=== PATIENT | male | born 1945 | race Caucasian/White ===

== ENCOUNTER 2021-03-22 08:23 | Inpatient (IN) | payer OTHER ==
[2021-03-22 10:41] LABS: BASO % 0.7 % (0-2.0); EOS % 2.9 % (0-4.5); HEMATOCRIT 42.7 % (35.4-49); HEMOGLOBIN 14.3 GM/dL (11.7-16.9); LYMPH % 20.6 % (8-40); MCH 29.3 pg (25.7-33.7); MCHC 33.6 g/dl (32.0-35.9); MEAN CELL VOLUME 87.2 fl (80-96); MEAN PLT VOLUME 8.4 fl (7.5-11.1); MONO % 8.2 % (3.8-10.2); NEUT % 67.6 % (42.8-82.8); PLATELET COUNT 200 10^3/uL (134-434); RDW 12.8 % (11.9-15.9); WHITE BLOOD COUNT 4.9 K/mm3 (4.0-10.0)
[2021-03-22 10:49] LABS: INR 1.1 (0.83-1.09); PROTHROMBIN TIME (PATIENT) 12.7 SEC (9.7-13.0)
[2021-03-22 10:51] LABS: ACTIVATED PTT 31.7 SECONDS (25.2-36.5)
[2021-03-22 10:59] LABS: CHLORIDE 107 mmol/L (98-107); SODIUM 140 mmol/L (136-145)
[2021-03-22 11:01] LABS: ALBUMIN 3.9 g/dl (3.4-5.0); ANION GAP 3 MMOL/L (8-16); CALCIUM 8.7 mg/dL (8.5-10.1); CO2 29 mmol/L (21-32); GLUCOSE,RANDOM 88 mg/dL (74-106); MAGNESIUM 2.5 mg/dL (1.8-2.4)
[2021-03-22 11:02] LABS: BLOOD UREA NITROGEN 16.8 mg/dL (7-18)
[2021-03-22 11:04] LABS: CREATININE 0.9 mg/dL (0.55-1.3); SGOT/AST 29 U/L (15-37)
[2021-03-22 11:05] LABS: SGPT/ALT 11 U/L (13-61)
[2021-03-22 11:06] LABS: BILIRUBIN,TOTAL 0.6 mg/dL (0.2-1); TOT PROT 7.3 g/dl (6.4-8.2)
[2021-03-22 11:07] LABS: ALK PHOS 72 U/L (45-117)
[2021-03-22] MEDS ORDERED: ACETAMINOPHEN 325 MG TABLET (FP) PO PRN (12:27)
[2021-03-22 12:34] LABS: EPI CELLS 0 /uL (0-25.1); HYALINE CASTS 1 /uL (0-3.1); URINE APPEARANCE CLEAR; URINE BACTERIA >9,000 /uL (0-1359); URINE BILIRUBIN NEGATIVE (NEGATIVE); URINE COLOR YELLOW; URINE GLUCOSE (UA) NEGATIVE (NEGATIVE); URINE KETONE NEGATIVE (NEGATIVE); URINE LEUK ESTERASE 1+ (NEGATIVE); URINE NITRITE POSITIVE (NEGATIVE); URINE PROTEIN NEGATIVE (NEGATIVE); URINE RBC 6 /uL (0-23.9); URINE WBC 135 /uL (0-25.8)
[2021-03-22] MEDS ORDERED: CEFTRIAXONE 1 GM/50 ML BAG ONE (14:01)
[2021-03-22] MEDS: CEFTRIAXONE 1 GM in DEXTROSE 5%-WATER - 50 ML IVPB SCH (14:09)
[2021-03-22] MEDS ORDERED: ATORVASTATIN CA 40 MG TABLET (FP) ONE (22:02)
[2021-03-22] MEDS ORDERED: MIRTAZAPINE 15 MG TABLET (FP) ONE (22:02)
[2021-03-22] MEDS ORDERED: SENNOSIDES 8.6MG TABLET (FP) PO ONE (22:02)
[2021-03-22] MEDS: MIRTAZAPINE 15 MG TABLET (FP) PO SCH (22:08)
[2021-03-22] MEDS: ATORVASTATIN CA 40 MG TABLET (FP) PO SCH (22:08)
[2021-03-22] MEDS: SENNOSIDES 8.6MG TABLET (FP) PO SCH (22:08)
[2021-03-23] MEDS ORDERED: CARBIDOPA/LEVODOPA 25/100 TABLET (FP) ONE (00:15)
[2021-03-23] MEDS ORDERED: HALOPERIDOL LACTATE 5 MG/ML ONE (05:55)
[2021-03-23] MEDS ORDERED: HALOPERIDOL LACTATE 5 MG/ML IM ONE (06:08)
[2021-03-23] MEDS ORDERED: LORazepam 2 MG/ML SDV VIAL IM ONE (06:08)
[2021-03-23 08:18] LABS: BASO % 0.4 % (0-2.0); EOS % 2.2 % (0-4.5); HEMATOCRIT 41.4 % (35.4-49); HEMOGLOBIN 13.9 GM/dL (11.7-16.9); LYMPH % 13.6 % (8-40); MCH 29.2 pg (25.7-33.7); MCHC 33.6 g/dl (32.0-35.9); MEAN CELL VOLUME 87.1 fl (80-96); MEAN PLT VOLUME 8.4 fl (7.5-11.1); MONO % 8.2 % (3.8-10.2); NEUT % 75.6 % (42.8-82.8); PLATELET COUNT 209 10^3/uL (134-434); RBC 4.76 M/mm3 (4.00-5.60); WHITE BLOOD COUNT 5.7 K/mm3 (4.0-10.0)
[2021-03-23 08:43] LABS: CHLORIDE 108 mmol/L (98-107); SODIUM 141 mmol/L (136-145)
[2021-03-23 08:47] LABS: ALBUMIN 3.6 g/dl (3.4-5.0); ANION GAP 6 MMOL/L (8-16); BLOOD UREA NITROGEN 18.6 mg/dL (7-18); CO2 27 mmol/L (21-32); GLUCOSE,RANDOM 102 mg/dL (74-106)
[2021-03-23 08:48] LABS: CALCIUM 9.1 mg/dL (8.5-10.1)
[2021-03-23 08:50] LABS: SGOT/AST 29 U/L (15-37); SGPT/ALT 10 U/L (13-61)
[2021-03-23 08:52] LABS: BILIRUBIN,TOTAL 0.9 mg/dL (0.2-1); TOT PROT 6.8 g/dl (6.4-8.2)
[2021-03-23 08:53] LABS: ALK PHOS 67 U/L (45-117)
[2021-03-23] MEDS: BENZTROPINE MESYLATE 1 MG TABLET PO SCH (10:00)
[2021-03-23] MEDS: POLYETHYLENE GLYCOL (HEALTHYLAX) 3350 17 GM PACKET PO SCH (10:00)
[2021-03-23] MEDS: SOLIFENACIN SUCCINATE 5 MG TAB PO SCH (10:00)
[2021-03-23] MEDS ORDERED: LISINOPRIL 5 MG TABLET PO SCH ×2 (10:00→11:16)
[2021-03-23] MEDS: DOCUSATE SODIUM 100 MG CAPSULE (FP) PO SCH (10:00)
[2021-03-23] MEDS: metoPROLOL SUCCINATE 25 MG TAB.SR.24H (FP) PO SCH (10:00)
[2021-03-23] MEDS ORDERED: LISINOPRIL 5 MG TABLET ONE (10:20)
[2021-03-23] MEDS ORDERED: metoPROLOL SUCCINATE 25 MG TAB.SR.24H (FP) ONE (10:20)
[2021-03-23] MEDS ORDERED: DOCUSATE SODIUM 100 MG CAPSULE (FP) PO ONE (10:20)
[2021-03-23] MEDS ORDERED: POLYETHYLENE GLYCOL (HEALTHYLAX) 3350 17 GM PACKET ONE (10:20)
[2021-03-23] MEDS ORDERED: CEFTRIAXONE 1 GM/50 ML BAG ONE (10:21)
[2021-03-23] MEDS ORDERED: ENOXAPARIN NA (PORCINE) 40 MG/0.4 ML DISP.SYRIN SQ ONE (10:21)
[2021-03-23] MEDS: ENOXAPARIN NA (PORCINE) 40 MG/0.4 ML DISP.SYRIN SQ SCH (10:25)
[2021-03-23] MEDS: CEFTRIAXONE 1 GM in DEXTROSE 5%-WATER - 50 ML IVPB SCH (10:40)
[2021-03-23] MEDS ORDERED: SODIUM CHLORIDE 500 ML IV STA (10:48)
[2021-03-23] MEDS: MIRTAZAPINE 15 MG TABLET (FP) PO SCH (21:10)
[2021-03-23] MEDS: SENNOSIDES 8.6MG TABLET (FP) PO SCH (21:10)
[2021-03-23] MEDS: ATORVASTATIN CA 40 MG TABLET (FP) PO SCH (21:10)
[2021-03-24] MEDS: MELATONIN 5 MG TABLETS PO SCH ×2 (00:44→22:24)
[2021-03-24] MEDS ORDERED: LORazepam 2 MG/ML SDV VIAL IVPUSH ONE ×2 (03:56→05:32)
[2021-03-24] MEDS ORDERED: cefTRIAXone SODIUM 1 GM VIAL ONE (09:22)
[2021-03-24] MEDS ORDERED: DEXTROSE 5%-WATER - 50 ML IVPB ONE (09:23)
[2021-03-24] MEDS: DOCUSATE SODIUM 100 MG CAPSULE (FP) PO SCH (09:39)
[2021-03-24] MEDS: metoPROLOL SUCCINATE 25 MG TAB.SR.24H (FP) PO SCH (09:39)
[2021-03-24] MEDS: ENOXAPARIN NA (PORCINE) 40 MG/0.4 ML DISP.SYRIN SQ SCH (09:39)
[2021-03-24] MEDS: SOLIFENACIN SUCCINATE 5 MG TAB PO SCH (09:39)
[2021-03-24] MEDS: BENZTROPINE MESYLATE 1 MG TABLET PO SCH (09:39)
[2021-03-24] MEDS: POLYETHYLENE GLYCOL (HEALTHYLAX) 3350 17 GM PACKET PO SCH (09:40)
[2021-03-24] MEDS: CEFTRIAXONE 1 GM in DEXTROSE 5%-WATER - 50 ML IVPB SCH (09:41)
[2021-03-24 10:24] LABS: HEMATOCRIT 42.4 % (35.4-49); HEMOGLOBIN 13.7 GM/dL (11.7-16.9); MCH 28.6 pg (25.7-33.7); MCHC 32.2 g/dl (32.0-35.9); MEAN CELL VOLUME 88.6 fl (80-96); MEAN PLT VOLUME 8.7 fl (7.5-11.1); PLATELET COUNT 221 10^3/uL (134-434); RBC 4.78 M/mm3 (4.00-5.60); RDW 13.1 % (11.9-15.9); WHITE BLOOD COUNT 5.1 K/mm3 (4.0-10.0)
[2021-03-24 10:48] LABS: CALCIUM 8.7 mg/dL (8.5-10.1)
[2021-03-24 10:49] LABS: ALBUMIN 3.6 g/dl (3.4-5.0); BLOOD UREA NITROGEN 17.8 mg/dL (7-18); MAGNESIUM 2.4 mg/dL (1.8-2.4)
[2021-03-24 10:52] LABS: PHOSPHOROUS 3.2 mg/dL (2.5-4.9)
[2021-03-24 10:53] LABS: TOT PROT 6.7 g/dl (6.4-8.2)
[2021-03-24] MEDS ORDERED: ACETAMINOPHEN 325 MG TABLET (FP) PO PRN (13:11)
[2021-03-24 14:11] VITALS: BMI 27.7
[2021-03-24 14:51] LABS: METHADONE, UR NEGATIVE (NEGATIVE)
[2021-03-24 14:52] LABS: COCAINE, UR NEGATIVE (NEGATIVE); OPIATES, URI NEGATIVE (NEGATIVE); PHENCYCLIDINE,URINE NEGATIVE (NEGATIVE); URINE AMPHETAMINES NEGATIVE (NEGATIVE); URINE BARBITURATES NEGATIVE (NEGATIVE); URINE BENZODIAZEPINES NEGATIVE (NEGATIVE)
[2021-03-24] MEDS ORDERED: QUEtiapine FUMARATE 25 MG TABLET PO ONE ×2 (16:28→22:00)
[2021-03-24] MEDS ORDERED: MIRTAZAPINE 15 MG TABLET (FP) PO SCH (22:00)
[2021-03-24] MEDS ORDERED: ATORVASTATIN CA 40 MG TABLET (FP) PO SCH (22:00)
[2021-03-24] MEDS ORDERED: SENNOSIDES 8.6MG TABLET (FP) PO SCH (22:00)
[2021-03-24] MEDS ORDERED: QUEtiapine FUMARATE 50 MG TABLET PO SCH (22:00)
[2021-03-25 09:48] LABS: HEMATOCRIT 41.4 % (35.4-49); MCH 29.7 pg (25.7-33.7); MCHC 33.7 g/dl (32.0-35.9); MEAN CELL VOLUME 88.1 fl (80-96); MEAN PLT VOLUME 8.2 fl (7.5-11.1); PLATELET COUNT 198 10^3/uL (134-434); RDW 13.2 % (11.9-15.9); WHITE BLOOD COUNT 5.8 K/mm3 (4.0-10.0)
[2021-03-25] MEDS ORDERED: BENZTROPINE MESYLATE 1 MG TABLET PO SCH (10:00)
[2021-03-25] MEDS ORDERED: POLYETHYLENE GLYCOL (HEALTHYLAX) 3350 17 GM PACKET PO SCH (10:00)
[2021-03-25] MEDS ORDERED: LISINOPRIL 5 MG TABLET PO SCH (10:00)
[2021-03-25] MEDS ORDERED: DOCUSATE SODIUM 100 MG CAPSULE (FP) PO SCH (10:00)
[2021-03-25] MEDS ORDERED: SOLIFENACIN SUCCINATE 5 MG TAB PO SCH (10:00)
[2021-03-25] MEDS ORDERED: CEFTRIAXONE 1 GM in DEXTROSE 5%-WATER - 50 ML IVPB SCH (10:00)
[2021-03-25] MEDS ORDERED: ENOXAPARIN NA (PORCINE) 40 MG/0.4 ML DISP.SYRIN SQ SCH (10:00)
[2021-03-25] MEDS ORDERED: metoPROLOL SUCCINATE 25 MG TAB.SR.24H (FP) PO SCH (10:00)
[2021-03-25 10:50] LABS: CALCIUM 8.7 mg/dL (8.5-10.1)
[2021-03-25 10:51] LABS: ALBUMIN 3.4 g/dl (3.4-5.0); BLOOD UREA NITROGEN 20.4 mg/dL (7-18); MAGNESIUM 2.6 mg/dL (1.8-2.4)
[2021-03-25 10:54] LABS: CREATININE 1.1 mg/dL (0.55-1.3); PHOSPHOROUS 3.3 mg/dL (2.5-4.9)
[2021-03-25 10:56] LABS: TOT PROT 6.7 g/dl (6.4-8.2)
[2021-03-25 16:55] VITALS: BP 116/72; PULSE 66; TEMP 98.7
[2021-03-25] MEDS ORDERED: QUEtiapine FUMARATE 50 MG TABLET PO SCH (22:00)
== END 2021-03-25 16:56 | disposition home or self-care (01) | DRG 689 ==
LOC: JER 08:23 → UNDOADMOB 09:40 → JERBED 09:40 → INTOOBSV 12:29 → OBSVTOIN 12:29 → J5S 03-23 19:14
PROVIDERS: ATTEND Internal Medicine
DX: N39.0 Urinary tract infection, site not specified (principal); G93.41 Metabolic encephalopathy; F02.81 Dementia in other diseases classified elsewhere, unspecified severity, with behavioral disturbance; M62.82 Rhabdomyolysis; I10 Essential (primary) hypertension; G20 Parkinson's disease; Z86.73 Personal history of transient ischemic attack (TIA), and cerebral infarction without residual deficits; K59.00 Constipation, unspecified; E78.5 Hyperlipidemia, unspecified
CPT/HCPCS: 36415; 70450-TC; 71045-TC-FY; 72125-TC; 73030-TC-LT-FY; 73523-TC-FY; 80053; 80307; 81003; 82550; 82553; 82962; 83735; 84100; 84484; 85025; 85027; 85610; 85730; 87086; 93005; 93010; 97116-GP; 97162-GP; 99285-25; C9803; G0378; U0003; U0005

== ENCOUNTER 2021-04-17 08:59 | Inpatient (IN) | payer OTHER ==
[2021-04-17 09:27] VITALS: BMI 25.8
[2021-04-17 10:13] LABS: BASO % 0.5 % (0-2.0); HEMATOCRIT 40.6 % (35.4-49); HEMOGLOBIN 13.9 GM/dL (11.7-16.9); LYMPH % 16.7 % (8-40); MCHC 34.2 g/dl (32.0-35.9); MEAN CELL VOLUME 87.8 fl (80-96); MEAN PLT VOLUME 8.4 fl (7.5-11.1); NEUT % 73.8 % (42.8-82.8); PLATELET COUNT 202 10^3/uL (134-434); RBC 4.62 M/mm3 (4.00-5.60); RDW 13.3 % (11.9-15.9); WHITE BLOOD COUNT 5.9 K/mm3 (4.0-10.0)
[2021-04-17 10:26] LABS: EPI CELLS >36 /uL (0-25.1); HYALINE CASTS 4 /uL (0-3.1); PH,URINE 5.5 (5.0-8.0); URINE APPEARANCE CLEAR; URINE BACTERIA 12 /uL (0-1359); URINE BILIRUBIN NEGATIVE (NEGATIVE); URINE COLOR ORANGE; URINE GLUCOSE (UA) NEGATIVE (NEGATIVE); URINE KETONE NEGATIVE (NEGATIVE); URINE LEUK ESTERASE TRACE (NEGATIVE); URINE NITRITE NEGATIVE (NEGATIVE); URINE PROTEIN TRACE (NEGATIVE); URINE RBC 3985 /uL (0-23.9); URINE WBC 35 /uL (0-25.8)
[2021-04-17 10:38] LABS: ALBUMIN 3.9 g/dl (3.4-5.0); BLOOD UREA NITROGEN 18.7 mg/dL (7-18)
[2021-04-17 10:41] LABS: CREATININE 0.9 mg/dL (0.55-1.3)
[2021-04-17 10:43] LABS: BILIRUBIN,TOTAL 0.8 mg/dL (0.2-1); TOT PROT 6.9 g/dl (6.4-8.2)
[2021-04-17] MEDS ORDERED: SODIUM CHLORIDE 0.9% 500 ML INFUS.BAG IV ONE (11:50)
[2021-04-17] MEDS: HEPARIN NA (PORCINE) 5,000 UNITS/ML 1ML VIAL SQ SCH ×2 (14:41→23:18)
[2021-04-17] MEDS ORDERED: ATORVASTATIN CA 40 MG TABLET (FP) PO SCH (22:00)
[2021-04-17] MEDS: BENZTROPINE MESYLATE 1 MG TABLET PO SCH (23:18)
[2021-04-17] MEDS: MIRTAZAPINE 15 MG TABLET (FP) PO SCH (23:18)
[2021-04-18] MEDS: HEPARIN NA (PORCINE) 5,000 UNITS/ML 1ML VIAL SQ SCH ×3 (06:07→21:22)
[2021-04-18 08:39] LABS: HEMATOCRIT 42.3 % (35.4-49); MCH 29.4 pg (25.7-33.7); MCHC 33.2 g/dl (32.0-35.9); MEAN CELL VOLUME 88.5 fl (80-96); MEAN PLT VOLUME 8.8 fl (7.5-11.1); PLATELET COUNT 193 10^3/uL (134-434); RBC 4.78 M/mm3 (4.00-5.60); RDW 13.1 % (11.9-15.9); WHITE BLOOD COUNT 4.7 K/mm3 (4.0-10.0)
[2021-04-18 08:56] LABS: BLOOD UREA NITROGEN 15.7 mg/dL (7-18); CALCIUM 8.9 mg/dL (8.5-10.1); MAGNESIUM 2.3 mg/dL (1.8-2.4)
[2021-04-18 09:00] LABS: CREATININE 0.9 mg/dL (0.55-1.3); PHOSPHOROUS 2.7 mg/dL (2.5-4.9)
[2021-04-18] MEDS: LISINOPRIL 5 MG TABLET PO SCH (10:04)
[2021-04-18] MEDS: metoPROLOL SUCCINATE 25 MG TAB.SR.24H (FP) PO SCH (10:05)
[2021-04-18] MEDS: OXYBUTYNIN CHLORIDE 5 MG TABLET PO SCH (10:05)
[2021-04-18] MEDS: BENZTROPINE MESYLATE 1 MG TABLET PO SCH ×2 (10:05→21:22)
[2021-04-18 11:35] LABS: EPI CELLS 1 /uL (0-25.1); HYALINE CASTS 38 /uL (0-3.1); PH,URINE 6.5 (5.0-8.0); URINE APPEARANCE CLOUDY; URINE BACTERIA >9,000 /uL (0-1359); URINE BILIRUBIN NEGATIVE (NEGATIVE); URINE COLOR YELLOW; URINE GLUCOSE (UA) NEGATIVE (NEGATIVE); URINE KETONE NEGATIVE (NEGATIVE); URINE LEUK ESTERASE 2+ (NEGATIVE); URINE NITRITE POSITIVE (NEGATIVE); URINE PROTEIN NEGATIVE (NEGATIVE); URINE RBC 221 /uL (0-23.9); URINE UROBILINOGEN 0.2 mg/dL (0.2-1.0); URINE WBC 474 /uL (0-25.8)
[2021-04-18] MEDS: ASPIRIN COATED 81 MG TABLET.EC PO SCH (12:06)
[2021-04-18] MEDS: ACETAMINOPHEN 325 MG TABLET (FP) PO PRN (13:58)
[2021-04-18] MEDS: MIRTAZAPINE 15 MG TABLET (FP) PO SCH (21:21)
[2021-04-19] MEDS: HEPARIN NA (PORCINE) 5,000 UNITS/ML 1ML VIAL SQ SCH ×4 (06:59→21:23)
[2021-04-19 08:07] LABS: BASO % 0.6 % (0-2.0); EOS % 3.7 % (0-4.5); HEMATOCRIT 43.5 % (35.4-49); HEMOGLOBIN 14.5 GM/dL (11.7-16.9); LYMPH % 23.9 % (8-40); MCH 29.3 pg (25.7-33.7); MCHC 33.4 g/dl (32.0-35.9); MEAN CELL VOLUME 87.9 fl (80-96); MEAN PLT VOLUME 8.5 fl (7.5-11.1); MONO % 8.4 % (3.8-10.2); NEUT % 63.4 % (42.8-82.8); PLATELET COUNT 187 10^3/uL (134-434); RBC 4.94 M/mm3 (4.00-5.60); RDW 13.1 % (11.9-15.9); WHITE BLOOD COUNT 4.8 K/mm3 (4.0-10.0)
[2021-04-19 08:16] LABS: CALCIUM 8.8 mg/dL (8.5-10.1)
[2021-04-19 08:17] LABS: BLOOD UREA NITROGEN 16.2 mg/dL (7-18)
[2021-04-19] MEDS ORDERED: INSULIN (NOVOLOG) ASPART 100 UNITS/ML 10ML VIAL ONE (10:39)
[2021-04-19] MEDS: OXYBUTYNIN CHLORIDE 5 MG TABLET PO SCH (10:51)
[2021-04-19] MEDS: LISINOPRIL 5 MG TABLET PO SCH (10:51)
[2021-04-19] MEDS: ASPIRIN COATED 81 MG TABLET.EC PO SCH (10:51)
[2021-04-19] MEDS: BENZTROPINE MESYLATE 1 MG TABLET PO SCH ×2 (10:51→21:23)
[2021-04-19] MEDS: metoPROLOL SUCCINATE 25 MG TAB.SR.24H (FP) PO SCH (10:51)
[2021-04-19] MEDS ORDERED: HALOPERIDOL LACTATE 5 MG/ML IM ONE (14:25)
[2021-04-19] MEDS ORDERED: LORazepam 2 MG/ML SDV VIAL IVPUSH ONE (14:28)
[2021-04-19] MEDS: ACETAMINOPHEN 325 MG TABLET (FP) PO PRN (21:23)
[2021-04-19] MEDS: MIRTAZAPINE 15 MG TABLET (FP) PO SCH (21:23)
[2021-04-20] MEDS: HEPARIN NA (PORCINE) 5,000 UNITS/ML 1ML VIAL SQ SCH ×3 (05:50→22:23)
[2021-04-20 09:21] LABS: BASO % 0.6 % (0-2.0); HEMATOCRIT 42.1 % (35.4-49); HEMOGLOBIN 13.7 GM/dL (11.7-16.9); LYMPH % 22.6 % (8-40); MCH 29.1 pg (25.7-33.7); MCHC 32.6 g/dl (32.0-35.9); MEAN CELL VOLUME 89.2 fl (80-96); MONO % 7.8 % (3.8-10.2); PLATELET COUNT 195 10^3/uL (134-434); RBC 4.72 M/mm3 (4.00-5.60); RDW 13.2 % (11.9-15.9); WHITE BLOOD COUNT 5.5 K/mm3 (4.0-10.0)
[2021-04-20 10:05] LABS: CALCIUM 8.7 mg/dL (8.5-10.1)
[2021-04-20] MEDS: ASPIRIN COATED 81 MG TABLET.EC PO SCH (10:50)
[2021-04-20] MEDS: OXYBUTYNIN CHLORIDE 5 MG TABLET PO SCH (10:50)
[2021-04-20] MEDS: metoPROLOL SUCCINATE 25 MG TAB.SR.24H (FP) PO SCH (10:50)
[2021-04-20] MEDS: LISINOPRIL 5 MG TABLET PO SCH (10:50)
[2021-04-20] MEDS: BENZTROPINE MESYLATE 1 MG TABLET PO SCH ×2 (10:50→22:18)
[2021-04-20] MEDS: POLYETHYLENE GLYCOL (HEALTHYLAX) 3350 17 GM PACKET PO SCH (10:52)
[2021-04-20] MEDS: SENNOSIDES 8.8 MG/5 ML BULK BOTTLE PO SCH (22:19)
[2021-04-20] MEDS: MIRTAZAPINE 15 MG TABLET (FP) PO SCH (22:19)
[2021-04-20] MEDS: ATORVASTATIN CA 40 MG TABLET (FP) PO SCH (22:23)
[2021-04-21] MEDS: HEPARIN NA (PORCINE) 5,000 UNITS/ML 1ML VIAL SQ SCH ×3 (05:40→22:42)
[2021-04-21] MEDS: LISINOPRIL 5 MG TABLET PO SCH (10:00)
[2021-04-21] MEDS: ASPIRIN COATED 81 MG TABLET.EC PO SCH (10:00)
[2021-04-21] MEDS: metoPROLOL SUCCINATE 25 MG TAB.SR.24H (FP) PO SCH (10:00)
[2021-04-21] MEDS: BENZTROPINE MESYLATE 1 MG TABLET PO SCH ×2 (10:00→22:50)
[2021-04-21] MEDS: POLYETHYLENE GLYCOL (HEALTHYLAX) 3350 17 GM PACKET PO SCH (10:00)
[2021-04-21] MEDS: OXYBUTYNIN CHLORIDE 5 MG TABLET PO SCH (10:00)
[2021-04-21] MEDS: MIRTAZAPINE 15 MG TABLET (FP) PO SCH (22:42)
[2021-04-21] MEDS: ATORVASTATIN CA 40 MG TABLET (FP) PO SCH (22:42)
[2021-04-21] MEDS: SENNOSIDES 8.8 MG/5 ML BULK BOTTLE PO SCH (22:50)
[2021-04-22] MEDS: HEPARIN NA (PORCINE) 5,000 UNITS/ML 1ML VIAL SQ SCH ×3 (06:15→21:21)
[2021-04-22] MEDS: ASPIRIN COATED 81 MG TABLET.EC PO SCH (10:24)
[2021-04-22] MEDS: LISINOPRIL 5 MG TABLET PO SCH ×2 (10:25→10:53)
[2021-04-22] MEDS: BENZTROPINE MESYLATE 1 MG TABLET PO SCH ×2 (10:25→22:40)
[2021-04-22] MEDS: metoPROLOL SUCCINATE 25 MG TAB.SR.24H (FP) PO SCH ×2 (10:25→10:53)
[2021-04-22] MEDS: ACETAMINOPHEN 325 MG TABLET (FP) PO PRN (10:25)
[2021-04-22] MEDS: OXYBUTYNIN CHLORIDE 5 MG TABLET PO SCH (10:25)
[2021-04-22] MEDS: POLYETHYLENE GLYCOL (HEALTHYLAX) 3350 17 GM PACKET PO SCH (10:27)
[2021-04-22] MEDS ORDERED: SODIUM CHLORIDE 500 ML IV STA (12:09)
[2021-04-22] MEDS ORDERED: CEFTRIAXONE 1 GM in DEXTROSE 5%-WATER - 50 ML IVPB ONE (15:15)
[2021-04-22] MEDS ORDERED: cefTRIAXone SODIUM 1 GM VIAL ONE (16:08)
[2021-04-22] MEDS ORDERED: DEXTROSE 5%-WATER - 50 ML IVPB ONE (16:08)
[2021-04-22] MEDS: ATORVASTATIN CA 40 MG TABLET (FP) PO SCH (21:21)
[2021-04-22] MEDS: MIRTAZAPINE 15 MG TABLET (FP) PO SCH (21:21)
[2021-04-22] MEDS: SENNOSIDES 8.8 MG/5 ML BULK BOTTLE PO SCH (21:22)
[2021-04-23] MEDS: HEPARIN NA (PORCINE) 5,000 UNITS/ML 1ML VIAL SQ SCH ×3 (05:22→22:53)
[2021-04-23] MEDS ORDERED: cefTRIAXone SODIUM 1 GM VIAL ONE (09:24)
[2021-04-23] MEDS ORDERED: DEXTROSE 5%-WATER - 50 ML IVPB ONE (09:24)
[2021-04-23] MEDS: ASPIRIN COATED 81 MG TABLET.EC PO SCH (09:50)
[2021-04-23] MEDS: metoPROLOL SUCCINATE 25 MG TAB.SR.24H (FP) PO SCH (09:50)
[2021-04-23] MEDS: OXYBUTYNIN CHLORIDE 5 MG TABLET PO SCH (09:51)
[2021-04-23] MEDS: LISINOPRIL 5 MG TABLET PO SCH (09:51)
[2021-04-23] MEDS: BENZTROPINE MESYLATE 1 MG TABLET PO SCH ×2 (09:51→22:53)
[2021-04-23] MEDS: POLYETHYLENE GLYCOL (HEALTHYLAX) 3350 17 GM PACKET PO SCH (09:51)
[2021-04-23] MEDS ORDERED: CEFTRIAXONE 1 GM in DEXTROSE 5%-WATER - 50 ML IVPB SCH (10:00)
[2021-04-23] MEDS ORDERED: HALOPERIDOL LACTATE 2 MG/ML UNIT-DOSE CUPS PO ONE (13:30)
[2021-04-23] MEDS ORDERED: HALOPERIDOL 1 MG TABLET PO ONE (13:45)
[2021-04-23] MEDS ORDERED: HALOPERIDOL LACTATE 5 MG/ML IM ONE (15:34)
[2021-04-23] MEDS: CEFPODOXIME PROXETIL 200 MG TABLET [NF] PO SCH ×2 (15:37→22:53)
[2021-04-23] MEDS ORDERED: HALOPERIDOL LACTATE 5 MG/ML ONE (15:41)
[2021-04-23 18:07] LABS: SARS-CoV-2 NAA Not Detected (Not Detected)
[2021-04-23] MEDS: ATORVASTATIN CA 40 MG TABLET (FP) PO SCH (22:53)
[2021-04-23] MEDS: SENNOSIDES 8.8 MG/5 ML BULK BOTTLE PO SCH (22:54)
[2021-04-23] MEDS: MIRTAZAPINE 15 MG TABLET (FP) PO SCH (22:54)
[2021-04-24] MEDS: HEPARIN NA (PORCINE) 5,000 UNITS/ML 1ML VIAL SQ SCH (05:42)
[2021-04-24] MEDS: ASPIRIN COATED 81 MG TABLET.EC PO SCH (10:28)
[2021-04-24] MEDS: CEFPODOXIME PROXETIL 200 MG TABLET [NF] PO SCH (10:29)
[2021-04-24] MEDS: metoPROLOL SUCCINATE 25 MG TAB.SR.24H (FP) PO SCH (10:29)
[2021-04-24] MEDS: POLYETHYLENE GLYCOL (HEALTHYLAX) 3350 17 GM PACKET PO SCH (10:29)
[2021-04-24] MEDS: BENZTROPINE MESYLATE 1 MG TABLET PO SCH (10:29)
[2021-04-24] MEDS: LISINOPRIL 5 MG TABLET PO SCH (10:29)
[2021-04-24] MEDS: OXYBUTYNIN CHLORIDE 5 MG TABLET PO SCH (10:29)
[2021-04-24] MEDS ORDERED: QUEtiapine FUMARATE 25 MG TABLET PO SCH (10:45)
[2021-04-24 18:24] VITALS: BP 100/63; PULSE 68; TEMP 98.6
== END 2021-04-24 18:36 | disposition home health service (06) | DRG 57 ==
LOC: JER 08:59 → JERBED 11:50 → J7W 14:02 → OBSVTOIN 04-23 12:29
PROVIDERS: ADMIT Internal Medicine; ATTEND Internal Medicine
DX: G20 Parkinson's disease (principal); N39.0 Urinary tract infection, site not specified; F02.81 Dementia in other diseases classified elsewhere, unspecified severity, with behavioral disturbance; I10 Essential (primary) hypertension; M79.89 Other specified soft tissue disorders; B96.20 Unspecified Escherichia coli [E. coli] as the cause of diseases classified elsewhere; R29.6 Repeated falls; R31.9 Hematuria, unspecified; Z86.73 Personal history of transient ischemic attack (TIA), and cerebral infarction without residual deficits
CPT/HCPCS: 36415; 70450-TC; 71045-TC-FY; 72125-TC; 72170-TC-FY; 73110-TC-RT-FY; 73130-TC-RT-FY; 80048; 80053; 81003; 82550; 82553; 83735; 84100; 84443; 84484; 85025; 85027; 87086; 87186; 93005; 93010; 97116-GP; 97161-GP; 99285-25; C9803; G0378; J1644; U0003; U0005

== ENCOUNTER 2021-04-26 01:38 | Inpatient (IN) | payer OTHER ==
[2021-04-26 03:39] LABS: BASO % 0.5 % (0-2.0); EOS % 0.6 % (0-4.5); HEMATOCRIT 43.2 % (35.4-49); HEMOGLOBIN 14.6 GM/dL (11.7-16.9); LYMPH % 6.6 % (8-40); MCH 30.2 pg (25.7-33.7); MCHC 33.9 g/dl (32.0-35.9); MEAN CELL VOLUME 89.2 fl (80-96); MEAN PLT VOLUME 8.9 fl (7.5-11.1); MONO % 7.8 % (3.8-10.2); NEUT % 84.5 % (42.8-82.8); PLATELET COUNT 174 10^3/uL (134-434); RBC 4.84 M/mm3 (4.00-5.60); RDW 13.5 % (11.9-15.9); WHITE BLOOD COUNT 10.3 K/mm3 (4.0-10.0)
[2021-04-26 03:47] LABS: INR 1.16 (0.83-1.09); PROTHROMBIN TIME (PATIENT) 13.4 SEC (9.7-13.0)
[2021-04-26 03:50] LABS: ACTIVATED PTT 28.9 SECONDS (25.2-36.5)
[2021-04-26 04:15] LABS: MAGNESIUM 2.6 mg/dL (1.8-2.4)
[2021-04-26 04:17] LABS: CREATININE 2.6 mg/dL (0.55-1.3); PHOSPHOROUS 4.6 mg/dL (2.5-4.9)
[2021-04-26 04:19] LABS: BILIRUBIN,TOTAL 0.6 mg/dL (0.2-1); TOT PROT 7.7 g/dl (6.4-8.2)
[2021-04-26 05:23] LABS: BLOOD UREA NITROGEN 62.8 mg/dL (7-18)
[2021-04-26 06:55] LABS: EPI CELLS 4 /uL (0-25.1); HYALINE CASTS 1 /uL (0-3.1); PH,URINE 5.5 (5.0-8.0); URINE APPEARANCE CLEAR; URINE BACTERIA 85 /uL (0-1359); URINE BILIRUBIN NEGATIVE (NEGATIVE); URINE COLOR YELLOW; URINE GLUCOSE (UA) NEGATIVE (NEGATIVE); URINE KETONE TRACE (NEGATIVE); URINE LEUK ESTERASE TRACE (NEGATIVE); URINE NITRITE NEGATIVE (NEGATIVE); URINE PROTEIN NEGATIVE (NEGATIVE); URINE RBC 21 /uL (0-23.9); URINE UROBILINOGEN 0.2 mg/dL (0.2-1.0); URINE WBC 58 /uL (0-25.8)
[2021-04-26] MEDS ORDERED: CEFTRIAXONE 1,000 MG in DEXTROSE 5%-WATER - 50 ML IVPB ONE (07:16)
[2021-04-26] MEDS ORDERED: CEFTRIAXONE 1 GM/50 ML BAG ONE (07:34)
[2021-04-26] MEDS ORDERED: ACETAMINOPHEN 325 MG TABLET (FP) PO PRN (09:05)
[2021-04-26] MEDS: HEPARIN NA (PORCINE) 5,000 UNITS/ML 1ML VIAL SQ SCH ×2 (09:30→21:51)
[2021-04-26] MEDS: SODIUM CHLORIDE 1,000 ML IV SCH ×3 (09:30→21:49)
[2021-04-26] MEDS ORDERED: HEPARIN NA (PORCINE) 5,000 UNITS/ML 1ML VIAL ONE (09:57)
[2021-04-26] MEDS: DOCUSATE SODIUM 100 MG CAPSULE (FP) PO SCH ×2 (14:00→21:51)
[2021-04-26] MEDS ORDERED: HALOPERIDOL LACTATE 5 MG/ML IM PRN (15:04)
[2021-04-26 15:41] VITALS: BMI 25.4
[2021-04-26] MEDS: ATORVASTATIN CA 40 MG TABLET (FP) PO SCH (21:51)
[2021-04-26] MEDS: MIRTAZAPINE 15 MG TABLET (FP) PO SCH (21:52)
[2021-04-27] MEDS: DOCUSATE SODIUM 100 MG CAPSULE (FP) PO SCH ×3 (05:45→23:28)
[2021-04-27 07:55] LABS: BASO % 0.5 % (0-2.0); EOS % 8.7 % (0-4.5); HEMOGLOBIN 12.7 GM/dL (11.7-16.9); LYMPH % 15.2 % (8-40); MCH 30.2 pg (25.7-33.7); MCHC 33.5 g/dl (32.0-35.9); MEAN CELL VOLUME 90.4 fl (80-96); MEAN PLT VOLUME 9.3 fl (7.5-11.1); MONO % 8.3 % (3.8-10.2); NEUT % 67.3 % (42.8-82.8); PLATELET COUNT 151 10^3/uL (134-434); RDW 13.6 % (11.9-15.9); WHITE BLOOD COUNT 6.6 K/mm3 (4.0-10.0)
[2021-04-27 08:03] LABS: CALCIUM 8.1 mg/dL (8.5-10.1)
[2021-04-27 08:11] LABS: BILIRUBIN,TOTAL 0.6 mg/dL (0.2-1)
[2021-04-27] MEDS ORDERED: DEXTROSE 5%-WATER - 50 ML IVPB ONE (09:42)
[2021-04-27] MEDS ORDERED: cefTRIAXone SODIUM 1 GM VIAL ONE (09:42)
[2021-04-27] MEDS: QUEtiapine FUMARATE 25 MG TABLET PO SCH ×2 (09:54→23:28)
[2021-04-27] MEDS: TAMSULOSIN HCL 0.4 MG CAP PO SCH (09:54)
[2021-04-27] MEDS: HEPARIN NA (PORCINE) 5,000 UNITS/ML 1ML VIAL SQ SCH ×2 (09:54→23:28)
[2021-04-27] MEDS: SODIUM CHLORIDE 1,000 ML IV SCH (09:55)
[2021-04-27] MEDS ORDERED: CEFTRIAXONE 1 GM in DEXTROSE 5%-WATER - 50 ML IVPB SCH (10:00)
[2021-04-27] MEDS: ATORVASTATIN CA 40 MG TABLET (FP) PO SCH (23:28)
[2021-04-27] MEDS: MIRTAZAPINE 15 MG TABLET (FP) PO SCH (23:28)
[2021-04-28] MEDS: rOPINIRole HCL 0.5 MG TABLET PO SCH ×4 (02:16→21:11)
[2021-04-28] MEDS: DOCUSATE SODIUM 100 MG CAPSULE (FP) PO SCH ×3 (05:48→21:10)
[2021-04-28] MEDS: TAMSULOSIN HCL 0.4 MG CAP PO SCH (09:48)
[2021-04-28] MEDS: QUEtiapine FUMARATE 25 MG TABLET PO SCH (09:48)
[2021-04-28] MEDS: SODIUM CHLORIDE 1,000 ML IV SCH ×2 (09:48→17:26)
[2021-04-28] MEDS: HEPARIN NA (PORCINE) 5,000 UNITS/ML 1ML VIAL SQ SCH ×2 (09:52→21:10)
[2021-04-28] MEDS ORDERED: FUROSEMIDE 40 MG/4 ML INJECTABLE VIAL IVPUSH ONE (10:35)
[2021-04-28] MEDS ORDERED: QUEtiapine FUMARATE 25 MG TABLET PO ONE (11:15)
[2021-04-28] MEDS ORDERED: OLANZapine 10 MG TABLET PO SCH ×2 (15:49→22:00)
[2021-04-28] MEDS: OLANZapine 10 MG TABLET PO SCH ×2 (16:23→21:10)
[2021-04-28] MEDS ORDERED: QUEtiapine FUMARATE 50 MG TABLET PO SCH (18:00)
[2021-04-28] MEDS: ATORVASTATIN CA 40 MG TABLET (FP) PO SCH (21:11)
[2021-04-29] MEDS: rOPINIRole HCL 0.5 MG TABLET PO SCH ×3 (05:44→21:07)
[2021-04-29] MEDS: DOCUSATE SODIUM 100 MG CAPSULE (FP) PO SCH ×3 (05:44→21:06)
[2021-04-29 09:04] LABS: BLOOD UREA NITROGEN 13.7 mg/dL (7-18); CALCIUM 8.5 mg/dL (8.5-10.1); MAGNESIUM 2.1 mg/dL (1.8-2.4)
[2021-04-29 09:07] LABS: CREATININE 0.9 mg/dL (0.55-1.3)
[2021-04-29] MEDS: HEPARIN NA (PORCINE) 5,000 UNITS/ML 1ML VIAL SQ SCH ×2 (09:21→21:06)
[2021-04-29] MEDS: OLANZapine 10 MG TABLET PO SCH ×2 (09:22→21:06)
[2021-04-29] MEDS: TAMSULOSIN HCL 0.4 MG CAP PO SCH (09:22)
[2021-04-29] MEDS: SODIUM CHLORIDE 1,000 ML IV SCH (09:25)
[2021-04-29] MEDS ORDERED: QUEtiapine FUMARATE 25 MG TABLET PO SCH (10:00)
[2021-04-29] MEDS ORDERED: LORazepam 2 MG/ML SDV VIAL IM ONE (14:41)
[2021-04-29] MEDS: ATORVASTATIN CA 40 MG TABLET (FP) PO SCH (21:06)
[2021-04-30] MEDS: SODIUM CHLORIDE 1,000 ML IV SCH ×2 (02:17→10:57)
[2021-04-30] MEDS: rOPINIRole HCL 0.5 MG TABLET PO SCH ×4 (06:29→21:33)
[2021-04-30] MEDS: DOCUSATE SODIUM 100 MG CAPSULE (FP) PO SCH ×4 (06:29→21:30)
[2021-04-30 07:40] LABS: HEMATOCRIT 40.5 % (35.4-49); HEMOGLOBIN 13.4 GM/dL (11.7-16.9); MCH 29.5 pg (25.7-33.7); MCHC 33.1 g/dl (32.0-35.9); MEAN CELL VOLUME 89.1 fl (80-96); MEAN PLT VOLUME 8.9 fl (7.5-11.1); PLATELET COUNT 189 10^3/uL (134-434); RBC 4.55 M/mm3 (4.00-5.60); RDW 13.1 % (11.9-15.9); WHITE BLOOD COUNT 5.5 K/mm3 (4.0-10.0)
[2021-04-30 07:51] LABS: CALCIUM 7.9 mg/dL (8.5-10.1)
[2021-04-30 07:52] LABS: BLOOD UREA NITROGEN 14.7 mg/dL (7-18)
[2021-04-30 07:55] LABS: CREATININE 0.9 mg/dL (0.55-1.3)
[2021-04-30] MEDS: OLANZapine 10 MG TABLET PO SCH ×2 (10:56→21:30)
[2021-04-30] MEDS: TAMSULOSIN HCL 0.4 MG CAP PO SCH (10:56)
[2021-04-30] MEDS: HEPARIN NA (PORCINE) 5,000 UNITS/ML 1ML VIAL SQ SCH ×2 (10:56→21:30)
[2021-04-30] MEDS: ATORVASTATIN CA 40 MG TABLET (FP) PO SCH (21:30)
[2021-05-01] MEDS: DOCUSATE SODIUM 100 MG CAPSULE (FP) PO SCH ×3 (05:36→21:54)
[2021-05-01] MEDS: rOPINIRole HCL 0.5 MG TABLET PO SCH ×3 (05:38→21:55)
[2021-05-01 07:45] LABS: CALCIUM 8.5 mg/dL (8.5-10.1)
[2021-05-01 07:46] LABS: BLOOD UREA NITROGEN 13.9 mg/dL (7-18)
[2021-05-01] MEDS: TAMSULOSIN HCL 0.4 MG CAP PO SCH (09:54)
[2021-05-01] MEDS: OLANZapine 10 MG TABLET PO SCH ×2 (09:55→21:54)
[2021-05-01] MEDS: SODIUM CHLORIDE 1,000 ML IV SCH (17:49)
[2021-05-01] MEDS ORDERED: LORazepam 2 MG/ML SDV VIAL IM ONE (18:23)
[2021-05-01] MEDS ORDERED: LORazepam 2 MG/ML SDV VIAL IVPUSH ONE (18:26)
[2021-05-01] MEDS: ATORVASTATIN CA 40 MG TABLET (FP) PO SCH (21:54)
[2021-05-02] MEDS ORDERED: LORazepam 2 MG/ML SDV VIAL IVPUSH ONE ×2 (05:54→14:45)
[2021-05-02] MEDS: rOPINIRole HCL 0.5 MG TABLET PO SCH ×2 (06:28→14:58)
[2021-05-02] MEDS: DOCUSATE SODIUM 100 MG CAPSULE (FP) PO SCH ×2 (06:28→14:23)
[2021-05-02 11:23] LABS: HEMATOCRIT 40.2 % (35.4-49); HEMOGLOBIN 13.6 GM/dL (11.7-16.9); MCHC 33.8 g/dl (32.0-35.9); MEAN CELL VOLUME 88.7 fl (80-96); MEAN PLT VOLUME 8.7 fl (7.5-11.1); PLATELET COUNT 224 10^3/uL (134-434); RBC 4.54 M/mm3 (4.00-5.60); RDW 13.1 % (11.9-15.9); WHITE BLOOD COUNT 7.4 K/mm3 (4.0-10.0)
[2021-05-02] MEDS: TAMSULOSIN HCL 0.4 MG CAP PO SCH (14:20)
[2021-05-02] MEDS: OLANZapine 10 MG TABLET PO SCH (14:20)
[2021-05-02] MEDS ORDERED: OLANZapine 10 MG TABLET PO SCH ×2 (14:38→22:00)
[2021-05-02 15:42] VITALS: BP 138/74; PULSE 88; TEMP 97.4
== END 2021-05-02 17:02 | DRG 699 ==
LOC: JER 01:38 → JERBED 05:42 → J7W 09:13
PROVIDERS: ADMIT Internal Medicine; ATTEND Internal Medicine
DX: N13.9 Obstructive and reflux uropathy, unspecified (principal); N17.9 Acute kidney failure, unspecified; N13.30 Unspecified hydronephrosis; F03.91 Unspecified dementia, unspecified severity, with behavioral disturbance; N40.0 Benign prostatic hyperplasia without lower urinary tract symptoms; Q61.3 Polycystic kidney, unspecified; R29.6 Repeated falls; R33.9 Retention of urine, unspecified; G20 Parkinson's disease; I10 Essential (primary) hypertension
CPT/HCPCS: 36415; 70450-TC; 71045-TC-FY; 72125-TC; 72170-TC-FY; 76775-TC; 76856-TC; 80048; 80053; 81003; 82550; 82607; 82962; 83690; 83735; 84100; 84153; 84484; 85025; 85027; 85610; 85651; 85730; 86038; 87086; 93005; 93010; 99285-25; C9803; J1644; U0003; U0005

== ENCOUNTER 2021-05-13 16:11 | Emergency (ER) | payer OTHER ==
[2021-05-13 16:52] VITALS: BMI 21.2
[2021-05-13] MEDS ORDERED: SODIUM CHLORIDE 0.9% 500 ML INFUS.BAG IV ONE (17:47)
[2021-05-13 21:24] VITALS: BP 147/78; PULSE 86; TEMP 98.3
== END 2021-05-13 21:24 | disposition home or self-care (01) ==
LOC: JER 16:11
DX: R31.0 Gross hematuria (principal)
CPT/HCPCS: 93005; 93010; 99284-25

== ENCOUNTER 2021-05-15 16:09 | Inpatient (IN) | payer OTHER ==
[2021-05-15 18:31] LABS: CALCIUM 9.1 mg/dL (8.5-10.1)
[2021-05-15 18:32] LABS: ALBUMIN 3.9 g/dl (3.4-5.0); BLOOD UREA NITROGEN 23.1 mg/dL (7-18)
[2021-05-15 18:35] LABS: CREATININE 1.2 mg/dL (0.55-1.3)
[2021-05-15 18:37] LABS: BILIRUBIN,TOTAL 0.2 mg/dL (0.2-1); TOT PROT 7.5 g/dl (6.4-8.2)
[2021-05-15 20:33] LABS: EPI CELLS 0 /uL (0-25.1); HYALINE CASTS 1 /uL (0-3.1); PH,URINE 6.5 (5.0-8.0); URINE APPEARANCE CLOUDY; URINE BACTERIA >9,000 /uL (0-1359); URINE BILIRUBIN NEGATIVE (NEGATIVE); URINE COLOR ORANGE; URINE GLUCOSE (UA) NEGATIVE (NEGATIVE); URINE KETONE NEGATIVE (NEGATIVE); URINE LEUK ESTERASE 2+ (NEGATIVE); URINE NITRITE NEGATIVE (NEGATIVE); URINE PROTEIN 1+ (NEGATIVE); URINE RBC 3227 /uL (0-23.9); URINE UROBILINOGEN 0.2 mg/dL (0.2-1.0); URINE WBC 930 /uL (0-25.8)
[2021-05-15] MEDS ORDERED: LORazepam 2 MG/ML SDV VIAL IM ONE (21:54)
[2021-05-15] MEDS ORDERED: CEFTRIAXONE 1 GM in DEXTROSE 5%-WATER - 50 ML IVPB ONE (21:56)
[2021-05-15] MEDS ORDERED: CEFTRIAXONE 1 GM/50 ML BAG ONE (22:19)
[2021-05-16 00:38] LABS: HEMATOCRIT 36.2 % (35.4-49); HEMOGLOBIN 12.1 GM/dL (11.7-16.9); MCH 29.4 pg (25.7-33.7); MCHC 33.4 g/dl (32.0-35.9); MEAN CELL VOLUME 88.2 fl (80-96); PLATELET COUNT 213 10^3/uL (134-434); RBC 4.11 M/mm3 (4.00-5.60); RDW 13.5 % (11.9-15.9); WHITE BLOOD COUNT 10.6 K/mm3 (4.0-10.0)
[2021-05-16] MEDS ORDERED: ACETAMINOPHEN 1000 MG/100 ML BAG IVPB PRN (01:10)
[2021-05-16 01:23] LABS: ANISOCYTOSIS 0; HELMET CELLS 0; HOWELL-JOLLY BODIES 0; MACROCYTOSIS 0; OVALOCYTE 0; PLATELET ESTIMATE NORMAL; ROULEAU 0; SICKELED CELLS 0; TARGET CELLS 0; TEAR DROP CELLS 0; TOXIC GRANULATION 0
[2021-05-16] MEDS ORDERED: ACETAMINOPHEN INJECTION 100 ML IVPB ONE (02:43)
[2021-05-16] MEDS ORDERED: ACETAMINOPHEN 325 MG TABLET (FP) PO PRN (09:40)
[2021-05-16] MEDS ORDERED: cefTRIAXone SODIUM 1 GM VIAL ONE (11:56)
[2021-05-16] MEDS ORDERED: DEXTROSE 5%-WATER - 50 ML IVPB ONE (11:56)
[2021-05-16] MEDS: CEFTRIAXONE 1 GM in DEXTROSE 5%-WATER - 50 ML IVPB SCH (12:43)
[2021-05-16] MEDS: QUEtiapine FUMARATE 25 MG TABLET PO SCH ×2 (12:49→21:35)
[2021-05-16] MEDS: LISINOPRIL 5 MG TABLET PO SCH (12:49)
[2021-05-16] MEDS: CHOLECALCIFEROL (VIT D3) 1,000 UNIT (25 MCG) TABLET PO SCH (12:50)
[2021-05-16] MEDS: metoPROLOL SUCCINATE 25 MG TAB.SR.24H (FP) PO SCH (12:50)
[2021-05-16] MEDS: BENZTROPINE MESYLATE 1 MG TABLET PO SCH ×2 (12:55→21:35)
[2021-05-16] MEDS: OXYBUTYNIN CHLORIDE 5 MG TABLET PO SCH (12:55)
[2021-05-16] MEDS: ENOXAPARIN NA (PORCINE) 40 MG/0.4 ML DISP.SYRIN SQ SCH (12:57)
[2021-05-16 14:25] LABS: BASO % 0.5 % (0-2.0); EOS % 4.2 % (0-4.5); HEMATOCRIT 36.6 % (35.4-49); HEMOGLOBIN 12.4 GM/dL (11.7-16.9); LYMPH % 16.7 % (8-40); MCH 29.7 pg (25.7-33.7); MCHC 33.7 g/dl (32.0-35.9); MEAN PLT VOLUME 7.9 fl (7.5-11.1); NEUT % 70.6 % (42.8-82.8); PLATELET COUNT 197 10^3/uL (134-434); RBC 4.16 M/mm3 (4.00-5.60); RDW 13.3 % (11.9-15.9); WHITE BLOOD COUNT 7.1 K/mm3 (4.0-10.0)
[2021-05-16 14:33] LABS: ALBUMIN 3.2 g/dl (3.4-5.0); CALCIUM 8.6 mg/dL (8.5-10.1)
[2021-05-16 14:34] LABS: BLOOD UREA NITROGEN 17.4 mg/dL (7-18)
[2021-05-16 14:37] LABS: CREATININE 0.7 mg/dL (0.55-1.3)
[2021-05-16 14:38] LABS: BILIRUBIN,TOTAL 0.4 mg/dL (0.2-1); TOT PROT 6.4 g/dl (6.4-8.2)
[2021-05-17 10:01] LABS: BASO % 0.6 % (0-2.0); EOS % 7.5 % (0-4.5); HEMATOCRIT 37.6 % (35.4-49); HEMOGLOBIN 12.5 GM/dL (11.7-16.9); LYMPH % 18.7 % (8-40); MCH 29.3 pg (25.7-33.7); MCHC 33.1 g/dl (32.0-35.9); MEAN CELL VOLUME 88.4 fl (80-96); MEAN PLT VOLUME 8.1 fl (7.5-11.1); MONO % 7.6 % (3.8-10.2); NEUT % 65.6 % (42.8-82.8); PLATELET COUNT 210 10^3/uL (134-434); RBC 4.26 M/mm3 (4.00-5.60); RDW 13.2 % (11.9-15.9); WHITE BLOOD COUNT 6.6 K/mm3 (4.0-10.0)
[2021-05-17] MEDS ORDERED: cefTRIAXone SODIUM 1 GM VIAL ONE (10:11)
[2021-05-17] MEDS ORDERED: DEXTROSE 5%-WATER - 50 ML IVPB ONE (10:12)
[2021-05-17] MEDS: CEFTRIAXONE 1 GM in DEXTROSE 5%-WATER - 50 ML IVPB SCH (10:15)
[2021-05-17] MEDS: LISINOPRIL 5 MG TABLET PO SCH (10:16)
[2021-05-17] MEDS: QUEtiapine FUMARATE 25 MG TABLET PO SCH ×2 (10:16→21:28)
[2021-05-17] MEDS: TAMSULOSIN HCL 0.4 MG CAP PO SCH (10:16)
[2021-05-17] MEDS: BENZTROPINE MESYLATE 1 MG TABLET PO SCH ×2 (10:16→21:28)
[2021-05-17] MEDS: OXYBUTYNIN CHLORIDE 5 MG TABLET PO SCH (10:16)
[2021-05-17] MEDS: CHOLECALCIFEROL (VIT D3) 1,000 UNIT (25 MCG) TABLET PO SCH (10:16)
[2021-05-17] MEDS: metoPROLOL SUCCINATE 25 MG TAB.SR.24H (FP) PO SCH (10:16)
[2021-05-17] MEDS: ERTAPENEM SODIUM 1 GM in SODIUM CHLORIDE 50 ML IVPB SCH (15:23)
[2021-05-18] MEDS: TAMSULOSIN HCL 0.4 MG CAP PO SCH (08:01)
[2021-05-18] MEDS: ERTAPENEM SODIUM 1 GM in SODIUM CHLORIDE 50 ML IVPB SCH (09:34)
[2021-05-18] MEDS: BENZTROPINE MESYLATE 1 MG TABLET PO SCH ×3 (09:34→22:54)
[2021-05-18] MEDS: QUEtiapine FUMARATE 25 MG TABLET PO SCH ×3 (09:35→22:54)
[2021-05-18] MEDS: CHOLECALCIFEROL (VIT D3) 1,000 UNIT (25 MCG) TABLET PO SCH (09:35)
[2021-05-18] MEDS: metoPROLOL SUCCINATE 25 MG TAB.SR.24H (FP) PO SCH (09:35)
[2021-05-18] MEDS: OXYBUTYNIN CHLORIDE 5 MG TABLET PO SCH (09:35)
[2021-05-18] MEDS: LISINOPRIL 5 MG TABLET PO SCH (09:35)
[2021-05-18 22:44] VITALS: BMI 23.6
[2021-05-19 08:58] LABS: BASO % 0.9 % (0-2.0); HEMATOCRIT 41.3 % (35.4-49); LYMPH % 24.3 % (8-40); MCHC 33.8 g/dl (32.0-35.9); MEAN CELL VOLUME 88.7 fl (80-96); MEAN PLT VOLUME 9.2 fl (7.5-11.1); MONO % 6.3 % (3.8-10.2); NEUT % 59.5 % (42.8-82.8); PLATELET COUNT 75 10^3/uL (134-434); RBC 4.66 M/mm3 (4.00-5.60); WHITE BLOOD COUNT 6.4 K/mm3 (4.0-10.0)
[2021-05-19 09:23] LABS: CALCIUM 9.1 mg/dL (8.5-10.1)
[2021-05-19 09:24] LABS: ALBUMIN 3.3 g/dl (3.4-5.0); BLOOD UREA NITROGEN 16.4 mg/dL (7-18)
[2021-05-19 09:27] LABS: CREATININE 0.8 mg/dL (0.55-1.3)
[2021-05-19 09:28] LABS: BILIRUBIN,TOTAL 0.4 mg/dL (0.2-1); TOT PROT 6.9 g/dl (6.4-8.2)
[2021-05-19] MEDS: ERTAPENEM SODIUM 1 GM in SODIUM CHLORIDE 50 ML IVPB SCH (09:42)
[2021-05-19] MEDS ORDERED: LIDOCAINE HCL/PF 2% SDV 5ML VIAL ONE (10:52)
[2021-05-19] MEDS ORDERED: PROPOFOL 20 ML ONE ×2 (10:53→12:26)
[2021-05-19] MEDS ORDERED: ceFAZolin SODIUM 1 GM VIAL IVPB ONE (11:40)
[2021-05-19] MEDS ORDERED: ACETAMINOPHEN INJECTION 100 ML IVPB ONE (11:57)
[2021-05-19] MEDS ORDERED: LIDOCAINE HCL 2% JELLY (5 ML/TUBE) ONE (12:06)
[2021-05-19] MEDS ORDERED: SEVOFLURANE 250 ML BTL ONE (12:06)
[2021-05-19] MEDS ORDERED: DESFLURANE GAS 240 ML BOTTLE IH ONE (12:06)
[2021-05-19] MEDS ORDERED: ACETAMINOPHEN IVPB ONE (12:06)
[2021-05-19] MEDS: QUEtiapine FUMARATE 25 MG TABLET PO SCH ×3 (16:36→21:33)
[2021-05-19] MEDS: LISINOPRIL 5 MG TABLET PO SCH (16:36)
[2021-05-19] MEDS: BENZTROPINE MESYLATE 1 MG TABLET PO SCH ×2 (16:36→21:33)
[2021-05-19] MEDS: TAMSULOSIN HCL 0.4 MG CAP PO SCH (16:36)
[2021-05-19] MEDS: metoPROLOL SUCCINATE 25 MG TAB.SR.24H (FP) PO SCH (16:36)
[2021-05-19] MEDS: OXYBUTYNIN CHLORIDE 5 MG TABLET PO SCH (16:36)
[2021-05-19] MEDS: ENOXAPARIN NA (PORCINE) 40 MG/0.4 ML DISP.SYRIN SQ SCH (16:36)
[2021-05-19] MEDS: CHOLECALCIFEROL (VIT D3) 1,000 UNIT (25 MCG) TABLET PO SCH (16:37)
[2021-05-20 08:35] LABS: BASO % 0.5 % (0-2.0); EOS % 2.5 % (0-4.5); HEMATOCRIT 37.6 % (35.4-49); HEMOGLOBIN 12.9 GM/dL (11.7-16.9); LYMPH % 9.7 % (8-40); MCH 29.9 pg (25.7-33.7); MCHC 34.3 g/dl (32.0-35.9); MEAN CELL VOLUME 87.3 fl (80-96); MEAN PLT VOLUME 7.9 fl (7.5-11.1); MONO % 5.8 % (3.8-10.2); NEUT % 81.5 % (42.8-82.8); PLATELET COUNT 236 10^3/uL (134-434); WHITE BLOOD COUNT 8.8 K/mm3 (4.0-10.0)
[2021-05-20 09:08] LABS: ALBUMIN 3.2 g/dl (3.4-5.0); BLOOD UREA NITROGEN 16.4 mg/dL (7-18); CALCIUM 8.6 mg/dL (8.5-10.1)
[2021-05-20 09:11] LABS: CREATININE 0.9 mg/dL (0.55-1.3)
[2021-05-20] MEDS: TAMSULOSIN HCL 0.4 MG CAP PO SCH (09:12)
[2021-05-20] MEDS: BENZTROPINE MESYLATE 1 MG TABLET PO SCH ×2 (09:12→22:30)
[2021-05-20 09:13] LABS: BILIRUBIN,TOTAL 0.5 mg/dL (0.2-1); TOT PROT 6.7 g/dl (6.4-8.2)
[2021-05-20] MEDS: CHOLECALCIFEROL (VIT D3) 1,000 UNIT (25 MCG) TABLET PO SCH (09:13)
[2021-05-20] MEDS: OXYBUTYNIN CHLORIDE 5 MG TABLET PO SCH (09:13)
[2021-05-20] MEDS: QUEtiapine FUMARATE 25 MG TABLET PO SCH ×2 (09:13→22:30)
[2021-05-20] MEDS: metoPROLOL SUCCINATE 25 MG TAB.SR.24H (FP) PO SCH (09:14)
[2021-05-20] MEDS: ENOXAPARIN NA (PORCINE) 40 MG/0.4 ML DISP.SYRIN SQ SCH (09:15)
[2021-05-20] MEDS: ERTAPENEM SODIUM 1 GM in SODIUM CHLORIDE 50 ML IVPB SCH (09:42)
[2021-05-21] MEDS: TAMSULOSIN HCL 0.4 MG CAP PO SCH (08:48)
[2021-05-21] MEDS: metoPROLOL SUCCINATE 25 MG TAB.SR.24H (FP) PO SCH (09:42)
[2021-05-21] MEDS: ERTAPENEM SODIUM 1 GM in SODIUM CHLORIDE 50 ML IVPB SCH (09:42)
[2021-05-21] MEDS: QUEtiapine FUMARATE 25 MG TABLET PO SCH ×2 (09:42→22:28)
[2021-05-21] MEDS: CHOLECALCIFEROL (VIT D3) 1,000 UNIT (25 MCG) TABLET PO SCH (09:42)
[2021-05-21] MEDS: OXYBUTYNIN CHLORIDE 5 MG TABLET PO SCH (09:44)
[2021-05-21] MEDS: BENZTROPINE MESYLATE 1 MG TABLET PO SCH ×2 (09:44→22:28)
[2021-05-21] MEDS: ENOXAPARIN NA (PORCINE) 40 MG/0.4 ML DISP.SYRIN SQ SCH (12:48)
[2021-05-22 09:28] LABS: BASO % 0.2 % (0-2.0); EOS % 4.9 % (0-4.5); HEMATOCRIT 37.8 % (35.4-49); HEMOGLOBIN 12.8 GM/dL (11.7-16.9); LYMPH % 14.1 % (8-40); MCH 29.7 pg (25.7-33.7); MCHC 33.8 g/dl (32.0-35.9); MEAN CELL VOLUME 87.8 fl (80-96); MEAN PLT VOLUME 7.8 fl (7.5-11.1); MONO % 6.9 % (3.8-10.2); NEUT % 73.9 % (42.8-82.8); PLATELET COUNT 262 10^3/uL (134-434); RBC 4.31 M/mm3 (4.00-5.60); RDW 13.1 % (11.9-15.9); WHITE BLOOD COUNT 9.2 K/mm3 (4.0-10.0)
[2021-05-22 10:01] LABS: ALBUMIN 2.9 g/dl (3.4-5.0); BLOOD UREA NITROGEN 23.2 mg/dL (7-18); CALCIUM 8.5 mg/dL (8.5-10.1)
[2021-05-22 10:04] LABS: CREATININE 0.9 mg/dL (0.55-1.3); TOT PROT 6.7 g/dl (6.4-8.2)
[2021-05-22 10:05] LABS: BILIRUBIN,TOTAL 0.5 mg/dL (0.2-1)
[2021-05-22] MEDS: CHOLECALCIFEROL (VIT D3) 1,000 UNIT (25 MCG) TABLET PO SCH (10:28)
[2021-05-22] MEDS: QUEtiapine FUMARATE 25 MG TABLET PO SCH ×2 (10:28→21:41)
[2021-05-22] MEDS: BENZTROPINE MESYLATE 1 MG TABLET PO SCH ×2 (10:28→21:41)
[2021-05-22] MEDS: TAMSULOSIN HCL 0.4 MG CAP PO SCH (10:28)
[2021-05-22] MEDS: OXYBUTYNIN CHLORIDE 5 MG TABLET PO SCH (10:28)
[2021-05-22] MEDS: metoPROLOL SUCCINATE 25 MG TAB.SR.24H (FP) PO SCH (10:28)
[2021-05-22] MEDS: ERTAPENEM SODIUM 1 GM in SODIUM CHLORIDE 50 ML IVPB SCH (10:29)
[2021-05-22] MEDS: ENOXAPARIN NA (PORCINE) 40 MG/0.4 ML DISP.SYRIN SQ SCH (10:30)
[2021-05-23] MEDS: metoPROLOL SUCCINATE 25 MG TAB.SR.24H (FP) PO SCH (10:10)
[2021-05-23] MEDS: ENOXAPARIN NA (PORCINE) 40 MG/0.4 ML DISP.SYRIN SQ SCH (10:22)
[2021-05-23] MEDS: QUEtiapine FUMARATE 25 MG TABLET PO SCH ×2 (10:22→21:17)
[2021-05-23] MEDS: FINASTERIDE 5 MG TABLET (FP) PO SCH (10:23)
[2021-05-23] MEDS: BENZTROPINE MESYLATE 1 MG TABLET PO SCH ×2 (10:23→21:19)
[2021-05-23] MEDS: CHOLECALCIFEROL (VIT D3) 1,000 UNIT (25 MCG) TABLET PO SCH (10:23)
[2021-05-23] MEDS: ERTAPENEM SODIUM 1 GM in SODIUM CHLORIDE 50 ML IVPB SCH (10:24)
[2021-05-23] MEDS: OXYBUTYNIN CHLORIDE 5 MG TABLET PO SCH (10:24)
[2021-05-23] MEDS: TAMSULOSIN HCL 0.4 MG CAP PO SCH (10:25)
[2021-05-24] MEDS: OXYBUTYNIN CHLORIDE 5 MG TABLET PO SCH (10:39)
[2021-05-24] MEDS: FINASTERIDE 5 MG TABLET (FP) PO SCH (10:40)
[2021-05-24] MEDS: ENOXAPARIN NA (PORCINE) 40 MG/0.4 ML DISP.SYRIN SQ SCH (10:40)
[2021-05-24] MEDS: QUEtiapine FUMARATE 25 MG TABLET PO SCH ×2 (10:40→21:27)
[2021-05-24] MEDS: CHOLECALCIFEROL (VIT D3) 1,000 UNIT (25 MCG) TABLET PO SCH (10:40)
[2021-05-24] MEDS: ERTAPENEM SODIUM 1 GM in SODIUM CHLORIDE 50 ML IVPB SCH (10:40)
[2021-05-24] MEDS: BENZTROPINE MESYLATE 1 MG TABLET PO SCH ×2 (10:40→21:27)
[2021-05-24] MEDS: metoPROLOL SUCCINATE 25 MG TAB.SR.24H (FP) PO SCH (11:12)
[2021-05-25] MEDS: metoPROLOL SUCCINATE 25 MG TAB.SR.24H (FP) PO SCH (10:16)
[2021-05-25] MEDS: ENOXAPARIN NA (PORCINE) 40 MG/0.4 ML DISP.SYRIN SQ SCH (10:16)
[2021-05-25] MEDS: BENZTROPINE MESYLATE 1 MG TABLET PO SCH ×2 (10:16→22:41)
[2021-05-25] MEDS: OXYBUTYNIN CHLORIDE 5 MG TABLET PO SCH (10:16)
[2021-05-25] MEDS: CHOLECALCIFEROL (VIT D3) 1,000 UNIT (25 MCG) TABLET PO SCH (10:16)
[2021-05-25] MEDS: ERTAPENEM SODIUM 1 GM in SODIUM CHLORIDE 50 ML IVPB SCH (10:17)
[2021-05-25] MEDS: FINASTERIDE 5 MG TABLET (FP) PO SCH (10:17)
[2021-05-25] MEDS: QUEtiapine FUMARATE 25 MG TABLET PO SCH ×2 (10:17→22:41)
[2021-05-26] MEDS: BENZTROPINE MESYLATE 1 MG TABLET PO SCH ×2 (10:32→22:17)
[2021-05-26] MEDS: CHOLECALCIFEROL (VIT D3) 1,000 UNIT (25 MCG) TABLET PO SCH (10:32)
[2021-05-26] MEDS: OXYBUTYNIN CHLORIDE 5 MG TABLET PO SCH (10:32)
[2021-05-26] MEDS: QUEtiapine FUMARATE 25 MG TABLET PO SCH ×2 (10:32→22:17)
[2021-05-26] MEDS: FINASTERIDE 5 MG TABLET (FP) PO SCH (10:32)
[2021-05-26] MEDS: ENOXAPARIN NA (PORCINE) 40 MG/0.4 ML DISP.SYRIN SQ SCH (10:33)
[2021-05-26] MEDS: metoPROLOL SUCCINATE 25 MG TAB.SR.24H (FP) PO SCH (10:34)
[2021-05-26] MEDS: ERTAPENEM SODIUM 1 GM in SODIUM CHLORIDE 50 ML IVPB SCH (11:37)
[2021-05-27] MEDS: QUEtiapine FUMARATE 25 MG TABLET PO SCH ×2 (09:35→22:17)
[2021-05-27] MEDS: BENZTROPINE MESYLATE 1 MG TABLET PO SCH ×2 (09:35→22:17)
[2021-05-27] MEDS: OXYBUTYNIN CHLORIDE 5 MG TABLET PO SCH (09:36)
[2021-05-27] MEDS: CHOLECALCIFEROL (VIT D3) 1,000 UNIT (25 MCG) TABLET PO SCH (09:36)
[2021-05-27] MEDS: FINASTERIDE 5 MG TABLET (FP) PO SCH (09:36)
[2021-05-27] MEDS: metoPROLOL SUCCINATE 25 MG TAB.SR.24H (FP) PO SCH (09:36)
[2021-05-27] MEDS: ENOXAPARIN NA (PORCINE) 40 MG/0.4 ML DISP.SYRIN SQ SCH (09:36)
[2021-05-28] MEDS: CHOLECALCIFEROL (VIT D3) 1,000 UNIT (25 MCG) TABLET PO SCH (09:58)
[2021-05-28] MEDS: FINASTERIDE 5 MG TABLET (FP) PO SCH (09:58)
[2021-05-28] MEDS: metoPROLOL SUCCINATE 25 MG TAB.SR.24H (FP) PO SCH (09:58)
[2021-05-28] MEDS: ENOXAPARIN NA (PORCINE) 40 MG/0.4 ML DISP.SYRIN SQ SCH (09:58)
[2021-05-28] MEDS: QUEtiapine FUMARATE 25 MG TABLET PO SCH ×2 (09:58→21:53)
[2021-05-28] MEDS: BENZTROPINE MESYLATE 1 MG TABLET PO SCH ×2 (09:59→21:53)
[2021-05-28] MEDS: OXYBUTYNIN CHLORIDE 5 MG TABLET PO SCH (09:59)
[2021-05-29] MEDS: ENOXAPARIN NA (PORCINE) 40 MG/0.4 ML DISP.SYRIN SQ SCH (09:23)
[2021-05-29] MEDS: QUEtiapine FUMARATE 25 MG TABLET PO SCH (09:24)
[2021-05-29] MEDS: CHOLECALCIFEROL (VIT D3) 1,000 UNIT (25 MCG) TABLET PO SCH (09:24)
[2021-05-29] MEDS: FINASTERIDE 5 MG TABLET (FP) PO SCH (09:24)
[2021-05-29] MEDS: metoPROLOL SUCCINATE 25 MG TAB.SR.24H (FP) PO SCH (09:24)
[2021-05-29] MEDS: BENZTROPINE MESYLATE 1 MG TABLET PO SCH (09:25)
[2021-05-29] MEDS: OXYBUTYNIN CHLORIDE 5 MG TABLET PO SCH (09:25)
[2021-05-29 12:40] VITALS: BP 125/71; PULSE 60; TEMP 98.2
== END 2021-05-29 11:44 | disposition home or self-care (01) | DRG 666 ==
LOC: JER 16:09 → JERBED 22:06 → OBSVTOIN 23:03 → J5S 05-16 06:06
PROVIDERS: ADMIT Internal Medicine; ATTEND Internal Medicine
PROC: 0TJB8ZZ Inspection of Bladder, Via Natural or Artificial Opening Endoscopic (ICD-10-PCS; 2021-05-19)
PROC: 0VT08ZZ Resection of Prostate, Via Natural or Artificial Opening Endoscopic (ICD-10-PCS; principal; 2021-05-19 12:00)
PROC: 0V508ZZ Destruction of Prostate, Via Natural or Artificial Opening Endoscopic (ICD-10-PCS; 2021-05-19 12:00)
DX: N32.0 Bladder-neck obstruction (principal); N39.0 Urinary tract infection, site not specified; F03.91 Unspecified dementia, unspecified severity, with behavioral disturbance; Z16.12 Extended spectrum beta lactamase (ESBL) resistance; N40.1 Benign prostatic hyperplasia with lower urinary tract symptoms; R33.9 Retention of urine, unspecified; G20 Parkinson's disease; L89.151 Pressure ulcer of sacral region, stage 1; B96.1 Klebsiella pneumoniae [K. pneumoniae] as the cause of diseases classified elsewhere; I10 Essential (primary) hypertension
CPT/HCPCS: 36415; 71045-TC-FY; 76775-TC; 76856-TC; 80053; 81003; 85025; 86850; 86900; 86901; 87086; 87186; 88305-TC; 93005; 93010; 94760; 99284-25; 99285-25; C9803-CS; G0378; U0003; U0005

== ENCOUNTER 2021-05-31 07:22 | Inpatient (IN) | payer OTHER ==
[2021-05-31] MEDS ORDERED: SODIUM CHLORIDE 0.9% 500 ML INFUS.BAG IV ONE ×3 (08:04→15:55)
[2021-05-31] MEDS ORDERED: ACETAMINOPHEN 1000 MG/100 ML BAG IVPB ONE (08:21)
[2021-05-31] MEDS ORDERED: ACETAMINOPHEN INJECTION 100 ML IVPB ONE (08:56)
[2021-05-31 09:43] LABS: BLOOD UREA NITROGEN 39.1 mg/dL (7-18)
[2021-05-31 09:46] LABS: CREATININE 1.3 mg/dL (0.55-1.3)
[2021-05-31 09:47] LABS: BILIRUBIN,TOTAL 0.7 mg/dL (0.2-1)
[2021-05-31 09:49] LABS: TOT PROT 8.4 g/dl (6.4-8.2)
[2021-05-31 09:50] LABS: ALBUMIN 3.5 g/dl (3.4-5.0); CALCIUM 9.8 mg/dL (8.5-10.1)
[2021-05-31 11:49] LABS: BASO % 0.2 % (0-2.0); EOS % 0.3 % (0-4.5); HEMATOCRIT 40.9 % (35.4-49); HEMOGLOBIN 13.3 GM/dL (11.7-16.9); LYMPH % 8.8 % (8-40); MCH 29.1 pg (25.7-33.7); MCHC 32.5 g/dl (32.0-35.9); MEAN CELL VOLUME 89.5 fl (80-96); MEAN PLT VOLUME 8.3 fl (7.5-11.1); MONO % 4.2 % (3.8-10.2); NEUT % 86.5 % (42.8-82.8); PLATELET COUNT 316 10^3/uL (134-434); RBC 4.57 M/mm3 (4.00-5.60); RDW 13.5 % (11.9-15.9); WHITE BLOOD COUNT 12.3 K/mm3 (4.0-10.0)
[2021-05-31 12:09] LABS: BLOOD UREA NITROGEN 39.4 mg/dL (7-18); CALCIUM 8.7 mg/dL (8.5-10.1)
[2021-05-31 12:13] LABS: CREATININE 1.2 mg/dL (0.55-1.3)
[2021-05-31 12:14] LABS: BILIRUBIN,TOTAL 0.4 mg/dL (0.2-1); TOT PROT 6.7 g/dl (6.4-8.2)
[2021-05-31 12:23] LABS: ALBUMIN 2.8 g/dl (3.4-5.0)
[2021-05-31 12:34] LABS: EPI CELLS 6 /uL (0-25.1); HYALINE CASTS 37 /uL (0-3.1); URINE APPEARANCE CLOUDY; URINE BACTERIA 94 /uL (0-1359); URINE BILIRUBIN NEGATIVE (NEGATIVE); URINE COLOR YELLOW; URINE GLUCOSE (UA) NEGATIVE (NEGATIVE); URINE KETONE NEGATIVE (NEGATIVE); URINE LEUK ESTERASE 1+ (NEGATIVE); URINE NITRITE NEGATIVE (NEGATIVE); URINE PROTEIN 1+ (NEGATIVE); URINE UROBILINOGEN 0.2 mg/dL (0.2-1.0); URINE WBC 760 /uL (0-25.8)
[2021-05-31 12:57] LABS: YEAST NEGATIVE (NEGATIVE)
[2021-05-31] MEDS: ATORVASTATIN CA 40 MG TABLET (FP) PO SCH ×2 (22:36→22:45)
[2021-05-31] MEDS: MIRTAZAPINE 15 MG TABLET (FP) PO SCH ×2 (22:37→22:46)
[2021-06-01 02:18] VITALS: BMI 21.1
[2021-06-01] MEDS: OXYBUTYNIN CHLORIDE 5 MG TABLET PO SCH (10:57)
[2021-06-01] MEDS: LISINOPRIL 5 MG TABLET PO SCH (10:58)
[2021-06-01] MEDS: FINASTERIDE 5 MG TABLET (FP) PO SCH (10:58)
[2021-06-01] MEDS: metoPROLOL SUCCINATE 25 MG TAB.SR.24H (FP) PO SCH (10:58)
[2021-06-01] MEDS ORDERED: QUEtiapine FUMARATE 25 MG TABLET PO SCH (11:15)
[2021-06-01] MEDS: ENOXAPARIN NA (PORCINE) 40 MG/0.4 ML DISP.SYRIN SQ SCH (11:40)
[2021-06-01] MEDS: ATORVASTATIN CA 40 MG TABLET (FP) PO SCH (22:01)
[2021-06-01] MEDS: QUEtiapine FUMARATE 25 MG TABLET PO SCH (22:01)
[2021-06-01] MEDS: MIRTAZAPINE 15 MG TABLET (FP) PO SCH (22:01)
[2021-06-01] MEDS: BENZTROPINE MESYLATE 1 MG TABLET PO SCH (22:01)
[2021-06-02] MEDS: QUEtiapine FUMARATE 25 MG TABLET PO SCH (09:10)
[2021-06-02] MEDS: BENZTROPINE MESYLATE 1 MG TABLET PO SCH (09:10)
[2021-06-02] MEDS: metoPROLOL SUCCINATE 25 MG TAB.SR.24H (FP) PO SCH (09:10)
[2021-06-02] MEDS: LISINOPRIL 5 MG TABLET PO SCH (09:10)
[2021-06-02] MEDS: FINASTERIDE 5 MG TABLET (FP) PO SCH (09:10)
[2021-06-02] MEDS: OXYBUTYNIN CHLORIDE 5 MG TABLET PO SCH (09:10)
[2021-06-02] MEDS: ENOXAPARIN NA (PORCINE) 40 MG/0.4 ML DISP.SYRIN SQ SCH (09:11)
[2021-06-02] MEDS ORDERED: HALOPERIDOL LACTATE 5 MG/ML IM PRN (11:24)
[2021-06-02 14:47] VITALS: BP 144/70; PULSE 54; TEMP 98.9
[2021-06-02] MEDS ORDERED: OLANZapine 5 MG TABLET PO SCH (22:00)
== END 2021-06-02 15:59 | DRG 884 ==
LOC: JER 07:22 → JERBED 11:04 → J6S 20:46
PROVIDERS: ADMIT Internal Medicine; ATTEND Internal Medicine
DX: F03.90 Unspecified dementia, unspecified severity, without behavioral disturbance, psychotic disturbance, mood disturbance, and anxiety (principal); R53.2 Functional quadriplegia; G20 Parkinson's disease; I10 Essential (primary) hypertension; D72.829 Elevated white blood cell count, unspecified
CPT/HCPCS: 36415; 70450-TC; 71045-TC-FY; 72125-TC; 80053; 81003; 84484; 85025; 87086; 87186; 87804; 93005; 93010; 97116-GP; 97161-GP; 99285-25; C9803-CS; U0003; U0005

== ENCOUNTER 2021-09-14 09:58 | Emergency (ER) | payer OTHER ==
[2021-09-14 10:17] VITALS: RESP 18; BMI 20.8
[2021-09-14 14:45] VITALS: BP 156/88; PULSE 55; TEMP 98.6
== END 2021-09-14 14:52 | disposition home or self-care (01) ==
LOC: JER 09:58
DX: Z04.3 Encounter for examination and observation following other accident (principal); W19.XXXA Unspecified fall, initial encounter; Y92.9 Unspecified place or not applicable
CPT/HCPCS: 70450-TC; 71045-TC-FY; 72125-TC; 72170-TC-FY; 93005; 93010; 99285-25

== ENCOUNTER 2022-01-12 13:24 | Emergency (ER) | payer OTHER ==
[2022-01-12 13:50] VITALS: BMI 23.6
[2022-01-12 16:20] LABS: BASO % 0.6 % (0-2.0); HEMATOCRIT 45.5 % (35.4-49); HEMOGLOBIN 14.7 GM/dL (11.7-16.9); MCH 28.9 pg (25.7-33.7); MCHC 32.2 g/dl (32.0-35.9); MEAN CELL VOLUME 89.5 fl (80-96); MEAN PLT VOLUME 9.3 fl (7.5-11.1); MONO % 5.8 % (3.8-10.2); NEUT % 71.6 % (42.8-82.8); PLATELET COUNT 239 10^3/uL (134-434); RBC 5.09 M/mm3 (4.00-5.60); RDW 13.5 % (11.9-15.9); WHITE BLOOD COUNT 8.1 K/mm3 (4.0-10.0)
[2022-01-12] MEDS ORDERED: QUEtiapine FUMARATE 25 MG TABLET PO ONE (16:26)
[2022-01-12 16:42] LABS: CHLORIDE 108 mmol/L (98-107); SODIUM 139 mmol/L (136-145)
[2022-01-12 16:45] LABS: ALBUMIN 3.7 g/dl (3.4-5.0); BLOOD UREA NITROGEN 16.4 mg/dL (7-18); CALCIUM 8.8 mg/dL (8.5-10.1); CO2 25 mmol/L (21-32); GLUCOSE,RANDOM 94 mg/dL (74-106)
[2022-01-12 16:48] LABS: SGOT/AST 102 U/L (15-37)
[2022-01-12 16:50] LABS: BILIRUBIN,TOTAL 0.4 mg/dL (0.2-1); TOT PROT 8.1 g/dl (6.4-8.2)
[2022-01-12] MEDS ORDERED: QUEtiapine FUMARATE 25 MG TABLET ONE (16:50)
[2022-01-12 16:51] LABS: ALK PHOS 81 U/L (45-117)
[2022-01-12 16:56] LABS: ANION GAP 6 MMOL/L (8-16); SGPT/ALT 47 U/L (13-61)
[2022-01-12 19:13] VITALS: BP 148/75; PULSE 75; RESP 18; TEMP 98.2
== END 2022-01-12 19:13 | disposition home or self-care (01) ==
LOC: JER 13:24
DX: F03.90 Unspecified dementia, unspecified severity, without behavioral disturbance, psychotic disturbance, mood disturbance, and anxiety (principal)
CPT/HCPCS: 0241U-QW; 36415; 71045-TC-FY; 80053; 84132; 85025; 99284-25

== ENCOUNTER 2022-07-01 08:05 | Observation (INO) | payer OTHER ==
[2022-07-01 09:39] LABS: BASO % 0.4 % (0-2.0); EOS % 2.4 % (0-4.5); HEMATOCRIT 42.8 % (35.4-49); HEMOGLOBIN 14.7 GM/dL (11.7-16.9); LYMPH % 11.7 % (8-40); MCH 29.4 pg (25.7-33.7); MCHC 34.2 g/dl (32.0-35.9); MEAN CELL VOLUME 85.9 fl (80-96); MEAN PLT VOLUME 9.5 fl (7.5-11.1); MONO % 5.5 % (3.8-10.2); PLATELET COUNT 204 10^3/uL (134-434); RBC 4.99 M/mm3 (4.00-5.60); RDW 13.7 % (11.9-15.9); WHITE BLOOD COUNT 6.3 K/mm3 (4.0-10.0)
[2022-07-01 09:46] LABS: INR 1.1 (0.83-1.09); PROTHROMBIN TIME (PATIENT) 12.7 SEC (9.7-13.0)
[2022-07-01 09:48] LABS: ACTIVATED PTT 31.3 SECONDS (25.2-36.5)
[2022-07-01 10:05] LABS: POTASSIUM 5.7 mmol/L (3.5-5.1)
[2022-07-01 10:06] LABS: CALCIUM 8.7 mg/dL (8.5-10.1)
[2022-07-01 10:07] LABS: ALBUMIN 3.8 g/dl (3.4-5.0); BLOOD UREA NITROGEN 16.4 mg/dL (7-18)
[2022-07-01 10:10] LABS: CREATININE 1.1 mg/dL (0.55-1.3)
[2022-07-01 10:12] LABS: BILIRUBIN,TOTAL 0.7 mg/dL (0.2-1); TOT PROT 7.8 g/dl (6.4-8.2)
[2022-07-01] MEDS ORDERED: ACETAMINOPHEN 1000 MG/100 ML BAG IVPB ONE (10:31)
[2022-07-01] MEDS ORDERED: ACETAMINOPHEN INJECTION 100 ML IVPB ONE (11:19)
[2022-07-01] MEDS ORDERED: HALOPERIDOL LACTATE 5 MG/ML IM ONE ×2 (14:23→14:37)
[2022-07-01 16:39] VITALS: BMI 26.5
[2022-07-01] MEDS ORDERED: SODIUM ZIRCONIUM CYCLOSILICATE (LOKELMA) 5 GM PACKET PO SCH (17:15)
[2022-07-01] MEDS: CEFTRIAXONE 1 GM in DEXTROSE 5%-WATER - 50 ML IVPB SCH (18:05)
[2022-07-01 20:49] LABS: EPI CELLS >36 /uL (0-25.1); HYALINE CASTS 35 /uL (0-3.1); URINE APPEARANCE Cloudy; URINE BACTERIA >9,000 /uL (0-1359); URINE BILIRUBIN Negative (NEGATIVE); URINE COLOR Yellow; URINE GLUCOSE (UA) Negative (NEGATIVE); URINE KETONE Negative (NEGATIVE); URINE LEUK ESTERASE Moderate (NEGATIVE); URINE NITRITE Negative (NEGATIVE); URINE PROTEIN Negative (NEGATIVE); URINE RBC 2 /uL (0-23.9); URINE UROBILINOGEN 0.2 mg/dL (0.2-1.0); URINE WBC 46 /uL (0-25.8)
[2022-07-01] MEDS: ATORVASTATIN CA 40 MG TABLET (FP) PO SCH ×2 (21:39→22:24)
[2022-07-01] MEDS: OLANZapine 5 MG TABLET PO SCH ×2 (21:40→22:25)
[2022-07-01] MEDS: MIRTAZAPINE 15 MG TABLET (FP) PO SCH ×2 (21:40→22:24)
[2022-07-01] MEDS: HALOPERIDOL LACTATE 5 MG/ML IM PRN (22:24)
[2022-07-02] MEDS: CEFTRIAXONE 1 GM in DEXTROSE 5%-WATER - 50 ML IVPB SCH (10:17)
[2022-07-02] MEDS: metoPROLOL SUCCINATE 25 MG TAB.SR.24H (FP) PO SCH (10:17)
[2022-07-02] MEDS: FINASTERIDE 5 MG TABLET (FP) PO SCH (10:17)
[2022-07-02] MEDS: OXYBUTYNIN CHLORIDE 5 MG TABLET PO SCH (10:21)
[2022-07-02 12:25] LABS: BASO % 0.5 % (0-2.0); EOS % 6.4 % (0-4.5); HEMATOCRIT 43.5 % (35.4-49); HEMOGLOBIN 14.6 GM/dL (11.7-16.9); LYMPH % 25.1 % (8-40); MCH 29.1 pg (25.7-33.7); MCHC 33.6 g/dl (32.0-35.9); MEAN CELL VOLUME 86.6 fl (80-96); MEAN PLT VOLUME 9.2 fl (7.5-11.1); MONO % 5.2 % (3.8-10.2); NEUT % 62.8 % (42.8-82.8); PLATELET COUNT 195 10^3/uL (134-434); RBC 5.02 M/mm3 (4.00-5.60); RDW 13.8 % (11.9-15.9); WHITE BLOOD COUNT 5.5 K/mm3 (4.0-10.0)
[2022-07-02 12:46] LABS: POTASSIUM 3.5 mmol/L (3.5-5.1)
[2022-07-02 12:49] LABS: CALCIUM 8.5 mg/dL (8.5-10.1)
[2022-07-02 12:50] LABS: ALBUMIN 3.6 g/dl (3.4-5.0); BLOOD UREA NITROGEN 17.1 mg/dL (7-18)
[2022-07-02 12:53] LABS: CREATININE 1.2 mg/dL (0.55-1.3)
[2022-07-02 12:55] LABS: BILIRUBIN,TOTAL 0.6 mg/dL (0.2-1)
[2022-07-02] MEDS: HALOPERIDOL LACTATE 5 MG/ML IM PRN (17:39)
[2022-07-02] MEDS: ERTAPENEM SODIUM 1 GM in SODIUM CHLORIDE 50 ML IVPB SCH (17:39)
[2022-07-02] MEDS: ATORVASTATIN CA 40 MG TABLET (FP) PO SCH (21:58)
[2022-07-02] MEDS: OLANZapine 5 MG TABLET PO SCH (21:58)
[2022-07-02] MEDS: MIRTAZAPINE 15 MG TABLET (FP) PO SCH (21:58)
[2022-07-03] MEDS: ERTAPENEM SODIUM 1 GM in SODIUM CHLORIDE 50 ML IVPB SCH (10:17)
[2022-07-03] MEDS: metoPROLOL SUCCINATE 25 MG TAB.SR.24H (FP) PO SCH (10:17)
[2022-07-03] MEDS: OXYBUTYNIN CHLORIDE 5 MG TABLET PO SCH (10:17)
[2022-07-03] MEDS: FINASTERIDE 5 MG TABLET (FP) PO SCH (10:17)
[2022-07-03 12:30] VITALS: RESP 20
[2022-07-03] MEDS: HALOPERIDOL LACTATE 5 MG/ML IM PRN (16:55)
[2022-07-03 17:06] VITALS: PULSE 67; TEMP 98.1
[2022-07-03 19:23] VITALS: BP 124/72
[2022-07-03] MEDS: OLANZapine 5 MG TABLET PO SCH (22:25)
[2022-07-03] MEDS: MIRTAZAPINE 15 MG TABLET (FP) PO SCH (22:25)
[2022-07-03] MEDS: ATORVASTATIN CA 40 MG TABLET (FP) PO SCH (22:25)
== END 2022-07-04 02:00 | disposition home or self-care (01) ==
LOC: JER 08:05 → JERBED 13:37 → J4W 15:16
PROVIDERS: ADMIT Internal Medicine; ATTEND Internal Medicine
PROC: 3E023GC Introduction of Other Therapeutic Substance into Muscle, Percutaneous Approach (ICD-10-PCS; principal; 2022-07-01)
PROC: 3E03329 Introduction of Other Anti-infective into Peripheral Vein, Percutaneous Approach (ICD-10-PCS; 2022-07-01)
PROC: 3E033NZ Introduction of Analgesics, Hypnotics, Sedatives into Peripheral Vein, Percutaneous Approach (ICD-10-PCS; 2022-07-01)
DX: S01.112A Laceration without foreign body of left eyelid and periocular area, initial encounter (principal); N39.0 Urinary tract infection, site not specified; W18.39XA Other fall on same level, initial encounter; G20 Parkinson's disease; Y93.89 Activity, other specified; R31.9 Hematuria, unspecified; Y92.008 Other place in unspecified non-institutional (private) residence as the place of occurrence of the external cause; F02.80 Dementia in other diseases classified elsewhere, unspecified severity, without behavioral disturbance, psychotic disturbance, mood disturbance, and anxiety; Z86.73 Personal history of transient ischemic attack (TIA), and cerebral infarction without residual deficits; N40.0 Benign prostatic hyperplasia without lower urinary tract symptoms; R53.2 Functional quadriplegia; R29.6 Repeated falls; K59.00 Constipation, unspecified
CPT/HCPCS: 0241U-QW; 36415; 70450-TC; 70486-TC; 71045-TC-FY; 71260-TC; 72125-TC; 74177-TC; 80053; 81003; 82962; 84484; 85025; 85610; 85730; 86850; 86900; 86901; 87086; 87186; 93005; 93010; 96365; 96367; 96372; 96375; 97116-GP; 97162-GP; 99285-25; G0378; Q9967

== ENCOUNTER 2023-01-04 11:19 | Emergency (ER) | payer OTHER ==
[2023-01-04 11:37] VITALS: RESP 18; BMI 25.9
[2023-01-04 13:55] LABS: BASO % 0.7 % (0-2.0); EOS % 5.2 % (0-4.5); HEMATOCRIT 43.1 % (35.4-49); HEMOGLOBIN 14.4 GM/dL (11.7-16.9); MCHC 33.5 g/dl (32.0-35.9); MEAN CELL VOLUME 86.8 fl (80-96); MEAN PLT VOLUME 8.7 fl (7.5-11.1); MONO % 6.9 % (3.8-10.2); NEUT % 61.2 % (42.8-82.8); PLATELET COUNT 227 10^3/uL (134-434); RBC 4.97 M/mm3 (4.00-5.60); WHITE BLOOD COUNT 5.8 K/mm3 (4.0-10.0)
[2023-01-04 14:00] LABS: INR 1.07 (0.83-1.09); PROTHROMBIN TIME (PATIENT) 12.4 SEC (9.7-13.0)
[2023-01-04 14:03] LABS: ACTIVATED PTT 32.7 SECONDS (25.2-36.5)
[2023-01-04] MEDS ORDERED: ACETAMINOPHEN 1000 MG/100 ML BAG IVPB ONE (14:05)
[2023-01-04 14:20] LABS: POTASSIUM 4.3 mmol/L (3.5-5.1)
[2023-01-04 14:22] LABS: CALCIUM 8.6 mg/dL (8.5-10.1)
[2023-01-04 14:23] LABS: ALBUMIN 3.6 g/dl (3.4-5.0); BLOOD UREA NITROGEN 16.8 mg/dL (7-18)
[2023-01-04] MEDS ORDERED: ACETAMINOPHEN INJECTION 100 ML IVPB ONE (14:25)
[2023-01-04 14:26] LABS: CREATININE 0.9 mg/dL (0.55-1.3)
[2023-01-04 14:27] LABS: BILIRUBIN,TOTAL 0.6 mg/dL (0.2-1)
[2023-01-04 14:28] LABS: TOT PROT 7.2 g/dl (6.4-8.2)
[2023-01-04 15:57] VITALS: BP 136/93; PULSE 57; TEMP 97.9
== END 2023-01-04 16:34 | disposition home or self-care (01) ==
LOC: JER 11:19
PROC: 3E033NZ Introduction of Analgesics, Hypnotics, Sedatives into Peripheral Vein, Percutaneous Approach (ICD-10-PCS; principal; 2023-01-04)
DX: R51.9 Headache, unspecified (principal); I10 Essential (primary) hypertension
CPT/HCPCS: 36415; 70450-TC; 80053; 85025; 85610; 85730; 93005; 93010; 99285-25

== ENCOUNTER 2023-08-08 19:41 | Observation (INO) | payer OTHER ==
[2023-08-08 20:06] VITALS: BMI 26.6
[2023-08-08] MEDS ORDERED: ACETAMINOPHEN INJECTION 100 ML IVPB ONE (21:08)
[2023-08-08] MEDS: ACETAMINOPHEN 1000 MG/100 ML BAG IVPB ONE (22:14)
[2023-08-08 22:30] LABS: BASO % 0.4 % (0-2.0); EOS % 3.3 % (0-4.5); HEMATOCRIT 43.3 % (35.4-49); HEMOGLOBIN 14.5 GM/dL (11.7-16.9); LYMPH % 16.8 % (8-40); MCH 29.4 pg (25.7-33.7); MCHC 33.5 g/dl (32.0-35.9); MEAN CELL VOLUME 87.8 fl (80-96); MEAN PLT VOLUME 8.5 fl (7.5-11.1); MONO % 6.7 % (3.8-10.2); NEUT % 72.8 % (42.8-82.8); PLATELET COUNT 208 10^3/uL (134-434); RBC 4.93 M/mm3 (4.00-5.60); RDW 13.3 % (11.9-15.9); WHITE BLOOD COUNT 8.6 K/mm3 (4.0-10.0)
[2023-08-08 22:50] LABS: POTASSIUM 4.6 mmol/L (3.5-5.1)
[2023-08-08 22:52] LABS: ALBUMIN 3.7 g/dl (3.4-5.0); BLOOD UREA NITROGEN 26.3 mg/dL (7-18); CALCIUM 9.3 mg/dL (8.5-10.1); MAGNESIUM 2.5 mg/dL (1.8-2.4)
[2023-08-08 22:56] LABS: CREATININE 1.2 mg/dL (0.55-1.3); PHOSPHOROUS 3.5 mg/dL (2.5-4.9)
[2023-08-08 22:58] LABS: BILIRUBIN,TOTAL 0.6 mg/dL (0.2-1); TOT PROT 7.3 g/dl (6.4-8.2)
[2023-08-09] MEDS: SODIUM PHOSPHATE/NA BIPHOS 133 ML ENEMA PR ONE (02:08)
[2023-08-09 06:46] LABS: BASO % 0.7 % (0-2.0); EOS % 3.2 % (0-4.5); HEMATOCRIT 46.9 % (35.4-49); HEMOGLOBIN 15.4 GM/dL (11.7-16.9); MCH 29.5 pg (25.7-33.7); MCHC 32.9 g/dl (32.0-35.9); MEAN CELL VOLUME 89.5 fl (80-96); MEAN PLT VOLUME 8.6 fl (7.5-11.1); MONO % 6.3 % (3.8-10.2); NEUT % 68.8 % (42.8-82.8); PLATELET COUNT 68 10^3/uL (134-434); RBC 5.24 M/mm3 (4.00-5.60); RDW 13.2 % (11.9-15.9); WHITE BLOOD COUNT 9.7 K/mm3 (4.0-10.0)
[2023-08-09 07:11] LABS: CALCIUM 8.8 mg/dL (8.5-10.1); POTASSIUM 4.5 mmol/L (3.5-5.1)
[2023-08-09 07:13] LABS: BLOOD UREA NITROGEN 24.1 mg/dL (7-18)
[2023-08-09] MEDS ORDERED: LISINOPRIL 10 MG TABLET ONE (08:10)
[2023-08-09] MEDS ORDERED: metoPROLOL SUCCINATE 25 MG TAB.SR.24H (FP) PO ONE (08:10)
[2023-08-09] MEDS ORDERED: TAMSULOSIN HCL 0.4 MG CAP ONE (08:10)
[2023-08-09] MEDS ORDERED: POLYETHYLENE GLYCOL (HEALTHYLAX) 3350 17 GM PACKET ONE (08:10)
[2023-08-09] MEDS: TAMSULOSIN HCL 0.4 MG CAP PO SCH (08:14)
[2023-08-09] MEDS: LISINOPRIL 10 MG TABLET PO SCH (08:14)
[2023-08-09] MEDS: metoPROLOL SUCCINATE 25 MG TAB.SR.24H (FP) PO SCH (08:14)
[2023-08-09] MEDS: POLYETHYLENE GLYCOL (HEALTHYLAX) 3350 17 GM PACKET PO SCH (09:55)
[2023-08-09] MEDS: SODIUM PHOSPHATE/NA BIPHOS 133 ML ENEMA RC ONE (09:57)
[2023-08-09 10:14] VITALS: RESP 18
[2023-08-09 13:01] VITALS: TEMP 97.6
[2023-08-09] MEDS: FINASTERIDE 5 MG TABLET (FP) PO SCH (13:14)
[2023-08-09 17:35] VITALS: BP 115/84; PULSE 71
[2023-08-09] MEDS ORDERED: ATORVASTATIN CA 40 MG TABLET (FP) PO SCH (22:00)
[2023-08-09] MEDS ORDERED: QUEtiapine FUMARATE 25 MG TABLET PO SCH (22:00)
[2023-08-09] MEDS ORDERED: MIRTAZAPINE 15 MG TABLET (FP) PO SCH (22:00)
== END 2023-08-09 18:02 | disposition home or self-care (01) ==
LOC: JER 19:41 → JERBED 08-09 00:53
PROVIDERS: ADMIT Internal Medicine; ATTEND Internal Medicine
PROC: 3E033GC Introduction of Other Therapeutic Substance into Peripheral Vein, Percutaneous Approach (ICD-10-PCS; principal; 2023-08-09)
DX: K59.00 Constipation, unspecified (principal); I10 Essential (primary) hypertension; E78.5 Hyperlipidemia, unspecified; N40.0 Benign prostatic hyperplasia without lower urinary tract symptoms; G20.A1 Parkinson's disease without dyskinesia, without mention of fluctuations; F02.80 Dementia in other diseases classified elsewhere, unspecified severity, without behavioral disturbance, psychotic disturbance, mood disturbance, and anxiety; Z86.73 Personal history of transient ischemic attack (TIA), and cerebral infarction without residual deficits; Z87.440 Personal history of urinary (tract) infections
CPT/HCPCS: 36415; 71045-TC-FY; 74018-TC-FY; 80048; 80053; 83735; 84100; 85025; 93005; 93010; 96374; 99285-25; G0378; J0131

== ENCOUNTER 2023-08-12 18:21 | Emergency (ER) | payer OTHER ==
[2023-08-12] MEDS ORDERED: LISINOPRIL 5 MG TABLET ONE (19:00)
[2023-08-12 19:21] LABS: BASO % 0.6 % (0-2.0); EOS % 4.8 % (0-4.5); HEMATOCRIT 42.7 % (35.4-49); HEMOGLOBIN 14.3 GM/dL (11.7-16.9); LYMPH % 28.1 % (8-40); MCH 29.4 pg (25.7-33.7); MCHC 33.5 g/dl (32.0-35.9); MEAN CELL VOLUME 87.9 fl (80-96); MEAN PLT VOLUME 8.6 fl (7.5-11.1); MONO % 7.4 % (3.8-10.2); NEUT % 59.1 % (42.8-82.8); PLATELET COUNT 225 10^3/uL (134-434); RBC 4.86 M/mm3 (4.00-5.60); RDW 13.5 % (11.9-15.9); WHITE BLOOD COUNT 5.9 K/mm3 (4.0-10.0)
[2023-08-12] MEDS: LISINOPRIL 5 MG TABLET PO ONE (19:22)
[2023-08-12 19:36] LABS: CHLORIDE 108 mmol/L (98-107); SODIUM 140 mmol/L (136-145)
[2023-08-12 19:38] LABS: GLUCOSE,RANDOM 119 mg/dL (74-106)
[2023-08-12 19:39] LABS: ALBUMIN 3.8 g/dl (3.4-5.0); ANION GAP 3 mmol/L (4-13); BLOOD UREA NITROGEN 14.9 mg/dL (7-18); CO2 30 mmol/L (21-32); MAGNESIUM 2.4 mg/dL (1.8-2.4)
[2023-08-12 19:41] LABS: SGPT/ALT 23 U/L (13-61)
[2023-08-12 19:42] LABS: SGOT/AST 19 U/L (15-37)
[2023-08-12 19:43] LABS: BILIRUBIN,TOTAL 0.4 mg/dL (0.2-1); TOT PROT 7.4 g/dl (6.4-8.2)
[2023-08-12 19:44] LABS: ALK PHOS 97 U/L (45-117)
[2023-08-12 20:06] VITALS: TEMP 98.1; BMI 25.2
[2023-08-12] MEDS: METOPROLOL TARTRATE 5 MG/5 ML VIAL IVPUSH ONE (20:08)
[2023-08-12 21:04] VITALS: BP 159/104; PULSE 62; RESP 18
[2023-08-12 21:24] LABS: EPI CELLS 1 /uL (0-25.1); HYALINE CASTS 0 /uL (0-3.1); PH,URINE 7.5 (5.0-8.0); URINE APPEARANCE CLEAR; URINE BACTERIA 8458 /uL (0-1359); URINE BILIRUBIN NEGATIVE (NEGATIVE); URINE COLOR YELLOW; URINE GLUCOSE (UA) NEGATIVE (NEGATIVE); URINE KETONE NEGATIVE (NEGATIVE); URINE LEUK ESTERASE 2+ (NEGATIVE); URINE NITRITE NEGATIVE (NEGATIVE); URINE PROTEIN NEGATIVE (NEGATIVE); URINE RBC 6 /uL (0-23.9); URINE WBC 305 /uL (0-25.8)
[2023-08-12] MEDS ORDERED: QUEtiapine FUMARATE 25 MG TABLET ONE (21:36)
[2023-08-12] MEDS ORDERED: ATORVASTATIN CA 40 MG TABLET (FP) ONE (21:36)
[2023-08-12] MEDS ORDERED: MIRTAZAPINE 15 MG TABLET (FP) ONE (21:37)
[2023-08-12] MEDS ORDERED: CARBIDOPA/LEVODOPA 25/100 TABLET (FP) ONE (21:37)
[2023-08-12] MEDS: CARBIDOPA/LEVODOPA 25/100 TABLET (FP) PO ONE (21:38)
[2023-08-12] MEDS: CIPROFLOXACIN 400 MG/D5W 400 MG/200 ML IVPB IVPB ONE (22:01)
[2023-08-12] MEDS: ATORVASTATIN CA 40 MG TABLET (FP) PO ONE (22:01)
[2023-08-12] MEDS: BENZTROPINE MESYLATE 1 MG TABLET PO ONE (22:01)
[2023-08-12] MEDS: QUEtiapine FUMARATE 25 MG TABLET PO ONE (22:01)
[2023-08-12] MEDS: MIRTAZAPINE 15 MG TABLET (FP) PO ONE (22:01)
== END 2023-08-13 03:13 | disposition home or self-care (01) ==
LOC: JER 18:21
DX: I10 Essential (primary) hypertension (principal); N39.0 Urinary tract infection, site not specified
CPT/HCPCS: 36415; 71045-TC-FY; 76937; 80053; 81003; 83735; 84484; 85025; 87086; 87186; 93005; 93010; 96365; 99285-25

== ENCOUNTER 2023-09-13 13:47 | Inpatient (IN) | payer OTHER ==
[2023-09-13] MEDS: LORazepam 2 MG/ML SDV VIAL IM ONE (15:38)
[2023-09-13] MEDS ORDERED: MIDAZOLAM HCL 2 MG/2 ML SINGLE DOSE VIAL ONE (18:00)
[2023-09-13] MEDS: MIDAZOLAM HCL 2 MG/2 ML SINGLE DOSE VIAL IM ONE (18:03)
[2023-09-13 18:45] LABS: BASO % 0.4 % (0-2.0); EOS % 1.5 % (0-4.5); HEMATOCRIT 43.4 % (35.4-49); HEMOGLOBIN 14.6 GM/dL (11.7-16.9); LYMPH % 16.4 % (8-40); MCH 29.4 pg (25.7-33.7); MCHC 33.7 g/dl (32.0-35.9); MEAN CELL VOLUME 87.3 fl (80-96); MEAN PLT VOLUME 7.7 fl (7.5-11.1); MONO % 6.6 % (3.8-10.2); NEUT % 75.1 % (42.8-82.8); PLATELET COUNT 221 10^3/uL (134-434); RBC 4.97 M/mm3 (4.00-5.60); RDW 13.6 % (11.9-15.9); WHITE BLOOD COUNT 8.6 K/mm3 (4.0-10.0)
[2023-09-13 18:54] LABS: INR 1.07 (0.83-1.09); PROTHROMBIN TIME (PATIENT) 12.1 SEC (9.7-13.0)
[2023-09-13 19:07] LABS: POTASSIUM 4.8 mmol/L (3.5-5.1)
[2023-09-13 19:10] LABS: ALBUMIN 3.6 g/dl (3.4-5.0); BLOOD UREA NITROGEN 20.8 mg/dL (7-18); MAGNESIUM 2.3 mg/dL (1.8-2.4)
[2023-09-13 19:13] LABS: CREATININE 1.1 mg/dL (0.55-1.3)
[2023-09-13 19:14] LABS: BILIRUBIN,TOTAL 0.6 mg/dL (0.2-1); TOT PROT 7.3 g/dl (6.4-8.2)
[2023-09-13 19:20] LABS: EPI CELLS >36 /uL (0-25.1); HYALINE CASTS 482 /uL (0-3.1); PH,URINE 7.5 (5.0-8.0); URINE APPEARANCE TURBID; URINE BACTERIA >9,000 /uL (0-1359); URINE BILIRUBIN NEGATIVE (NEGATIVE); URINE COLOR ORANGE; URINE GLUCOSE (UA) NEGATIVE (NEGATIVE); URINE KETONE NEGATIVE (NEGATIVE); URINE LEUK ESTERASE 3+ (NEGATIVE); URINE NITRITE POSITIVE (NEGATIVE); URINE PROTEIN 1+ (NEGATIVE); URINE RBC 1910 /uL (0-23.9); URINE UROBILINOGEN 0.2 mg/dL (0.2-1.0); URINE WBC 31610 /uL (0-25.8)
[2023-09-13] MEDS ORDERED: CEFTRIAXONE 1 GM/50 ML BAG ONE (21:04)
[2023-09-14 09:04] LABS: BASO % 0.6 % (0-2.0); EOS % 3.7 % (0-4.5); HEMATOCRIT 40.4 % (35.4-49); HEMOGLOBIN 13.6 GM/dL (11.7-16.9); LYMPH % 18.1 % (8-40); MCH 29.5 pg (25.7-33.7); MCHC 33.6 g/dl (32.0-35.9); MEAN CELL VOLUME 87.9 fl (80-96); MEAN PLT VOLUME 8.1 fl (7.5-11.1); MONO % 7.4 % (3.8-10.2); NEUT % 70.2 % (42.8-82.8); PLATELET COUNT 206 10^3/uL (134-434); RDW 13.4 % (11.9-15.9); WHITE BLOOD COUNT 7.3 K/mm3 (4.0-10.0)
[2023-09-14 09:11] LABS: POTASSIUM 4.2 mmol/L (3.5-5.1)
[2023-09-14 09:14] LABS: BLOOD UREA NITROGEN 15.7 mg/dL (7-18); CALCIUM 8.7 mg/dL (8.5-10.1)
[2023-09-14] MEDS: HEPARIN NA (PORCINE) 5,000 UNITS/ML 1ML VIAL SQ SCH (10:25)
[2023-09-14] MEDS: CEFTRIAXONE 1 GM in DEXTROSE 5%-WATER - 50 ML IVPB SCH (10:25)
[2023-09-14] MEDS: LORazepam 2 MG/ML SDV VIAL IVPUSH PRN (12:43)
[2023-09-14] MEDS: LISINOPRIL 20 MG TABLET PO SCH (15:59)
[2023-09-14] MEDS: ATORVASTATIN CA 40 MG TABLET (FP) PO ONE (15:59)
[2023-09-14] MEDS: metoPROLOL SUCCINATE 25 MG TAB.SR.24H (FP) PO SCH (16:00)
[2023-09-14] MEDS: BENZTROPINE MESYLATE 1 MG TABLET PO SCH (23:34)
[2023-09-14] MEDS: OLANZapine 2.5 MG TABLET PO SCH (23:35)
[2023-09-14] MEDS: ATORVASTATIN CA 40 MG TABLET (FP) PO SCH (23:36)
[2023-09-15] MEDS: TAMSULOSIN HCL 0.4 MG CAP PO SCH (09:39)
[2023-09-16] MEDS: ERTAPENEM SODIUM 1 GM in SODIUM CHLORIDE 50 ML IVPB SCH (10:43)
[2023-09-16] MEDS: OLANZapine 5 MG TABLET PO SCH (21:46)
[2023-09-18] MEDS: LORazepam 2 MG/ML SDV VIAL IM ONE (07:38)
[2023-09-20 07:41] LABS: ARTERIAL BLD GAS O2 SATURATION 96.7 % (95-98); ARTERIAL BLOOD GAS BASE EXCESS -1.1 mmol/L (-2-2); ARTERIAL BLOOD GAS PO2 89.1 mmHg (80-100); ARTERIAL BLOOD GAS pH 7.381 (7.350-7.450)
[2023-09-20 07:43] LABS: ALLENS TEST POSITIVE
[2023-09-20 09:03] LABS: POTASSIUM 4.9 mmol/L (3.5-5.1)
[2023-09-20 09:05] LABS: CALCIUM 8.7 mg/dL (8.5-10.1)
[2023-09-20 09:06] LABS: ALBUMIN 3.4 g/dl (3.4-5.0); MAGNESIUM 2.4 mg/dL (1.8-2.4)
[2023-09-20 09:09] LABS: CREATININE 1.8 mg/dL (0.55-1.3)
[2023-09-20 09:10] LABS: TOT PROT 6.8 g/dl (6.4-8.2)
[2023-09-20 09:11] LABS: BILIRUBIN,TOTAL 0.6 mg/dL (0.2-1)
[2023-09-20 09:13] LABS: BASO % 0.7 % (0-2.0); EOS % 5.1 % (0-4.5); HEMATOCRIT 42.5 % (35.4-49); HEMOGLOBIN 14.4 GM/dL (11.7-16.9); LYMPH % 22.4 % (8-40); MCHC 33.8 g/dl (32.0-35.9); MEAN CELL VOLUME 88.7 fl (80-96); MEAN PLT VOLUME 9.4 fl (7.5-11.1); MONO % 5.6 % (3.8-10.2); NEUT % 66.2 % (42.8-82.8); PLATELET COUNT 228 10^3/uL (134-434); RBC 4.79 M/mm3 (4.00-5.60); RDW 13.7 % (11.9-15.9); WHITE BLOOD COUNT 6.8 K/mm3 (4.0-10.0)
[2023-09-20 09:23] LABS: BLOOD UREA NITROGEN 51.8 mg/dL (7-18)
[2023-09-20] MEDS: SODIUM CHLORIDE 250 ML IV STA (10:05)
[2023-09-20] MEDS: SODIUM CHLORIDE 1,000 ML IV STA (10:10)
[2023-09-20] MEDS: SODIUM CHLORIDE 1,000 ML IV SCH (11:18)
[2023-09-20 15:44] VITALS: BMI 24.5
[2023-09-21 09:56] LABS: BASO % 0.7 % (0-2.0); EOS % 5.5 % (0-4.5); HEMOGLOBIN 13.9 GM/dL (11.7-16.9); LYMPH % 19.6 % (8-40); MCHC 33.9 g/dl (32.0-35.9); MEAN CELL VOLUME 88.6 fl (80-96); MEAN PLT VOLUME 8.3 fl (7.5-11.1); MONO % 6.2 % (3.8-10.2); PLATELET COUNT 189 10^3/uL (134-434); RBC 4.63 M/mm3 (4.00-5.60); RDW 13.2 % (11.9-15.9); WHITE BLOOD COUNT 7.1 K/mm3 (4.0-10.0)
[2023-09-21 10:18] LABS: POTASSIUM 4.4 mmol/L (3.5-5.1)
[2023-09-21] MEDS: ERTAPENEM SODIUM 0.5 GM in SODIUM CHLORIDE 50 ML IVPB SCH (10:18)
[2023-09-21] MEDS: metoPROLOL SUCCINATE 25 MG TAB.SR.24H (FP) PO SCH (10:19)
[2023-09-21 10:35] LABS: BLOOD UREA NITROGEN 34.1 mg/dL (7-18)
[2023-09-21 10:38] LABS: CALCIUM 8.7 mg/dL (8.5-10.1)
[2023-09-21 10:40] LABS: ALBUMIN 3.3 g/dl (3.4-5.0); CREATININE 1.1 mg/dL (0.55-1.3)
[2023-09-21 10:42] LABS: BILIRUBIN,TOTAL 0.7 mg/dL (0.2-1); TOT PROT 6.7 g/dl (6.4-8.2)
[2023-09-21] MEDS: SODIUM CHLORIDE 1,000 ML IV SCH (18:23)
[2023-09-22 15:59] VITALS: BP 107/80; PULSE 71; RESP 20; TEMP 98.8
== END 2023-09-22 19:26 | disposition home or self-care (01) | DRG 689 ==
LOC: JER 13:47 → JERBED 21:23 → J8W 09-14 04:40
PROVIDERS: ADMIT Internal Medicine; ATTEND Internal Medicine
DX: N39.0 Urinary tract infection, site not specified (principal); G93.41 Metabolic encephalopathy; R53.2 Functional quadriplegia; N17.9 Acute kidney failure, unspecified; F02.811 Dementia in other diseases classified elsewhere, unspecified severity, with agitation; B96.20 Unspecified Escherichia coli [E. coli] as the cause of diseases classified elsewhere; K59.00 Constipation, unspecified; E78.5 Hyperlipidemia, unspecified; G20.A1 Parkinson's disease without dyskinesia, without mention of fluctuations; N40.0 Benign prostatic hyperplasia without lower urinary tract symptoms; R29.6 Repeated falls
CPT/HCPCS: 0241U-QW; 36415; 36600; 70450-TC; 71045-TC-FY; 80048; 80053; 81003; 82803; 82962; 83605; 83735; 84100; 84484; 85025; 85610; 86850; 86900; 86901; 87086; 87186; 93005; 93010; 99285-25; J1644

== ENCOUNTER 2023-12-21 05:09 | Inpatient (IN) | payer OTHER ==
[2023-12-21 05:28] VITALS: BMI 28.1
[2023-12-21] MEDS ORDERED: VANCOMYCIN 1 GRAM (PRE-DOCKED) 1,000 MG/250 ML BAG IVPB ONE (06:52)
[2023-12-21] MEDS: ERTAPENEM SODIUM 1 GM in SODIUM CHLORIDE 50 ML IVPB ONE (07:00)
[2023-12-21 07:25] LABS: INR 0.94 (0.83-1.09); PROTHROMBIN TIME (PATIENT) 10.8 SEC (9.7-13.0)
[2023-12-21 07:28] LABS: ACTIVATED PTT 38.1 SECONDS (25.2-36.5)
[2023-12-21 07:32] LABS: BASO % 0.5 % (0-2.0); EOS % 2.7 % (0-4.5); HEMATOCRIT 46.6 % (35.4-49); HEMOGLOBIN 15.4 GM/dL (11.7-16.9); LYMPH % 24.4 % (8-40); MCH 29.1 pg (25.7-33.7); MCHC 32.9 g/dl (32.0-35.9); MEAN CELL VOLUME 88.2 fl (80-96); MEAN PLT VOLUME 9.4 fl (7.5-11.1); MONO % 6.3 % (3.8-10.2); NEUT % 66.1 % (42.8-82.8); PLATELET COUNT 170 10^3/uL (134-434); RBC 5.28 M/mm3 (4.00-5.60); RDW 13.6 % (11.9-15.9); WHITE BLOOD COUNT 4.1 K/mm3 (4.0-10.0)
[2023-12-21 07:41] LABS: POTASSIUM 4.5 mmol/L (3.5-5.1)
[2023-12-21 07:44] LABS: ALBUMIN 3.5 g/dl (3.4-5.0); BLOOD UREA NITROGEN 20.4 mg/dL (7-18)
[2023-12-21 07:47] LABS: CREATININE 0.8 mg/dL (0.55-1.3)
[2023-12-21 07:48] LABS: BILIRUBIN,TOTAL 0.3 mg/dL (0.2-1)
[2023-12-21] MEDS: VANCOMYCIN 1,000 MG in DEXTROSE 5%-WATER - 250 ML IVPB ONE (08:03)
[2023-12-21] MEDS: SODIUM CHLORIDE 0.9% 500 ML INFUS.BAG IV ONE (08:45)
[2023-12-21 08:48] LABS: VENOUS BASE EXCESS 0.5 mmol/L (-2-2); VENOUS O2 SATURATION 89.9 % (70-80); VENOUS PCO2 44.5 mmHg (38-52); VENOUS PH 7.384 (7.310-7.410)
[2023-12-21] MEDS: SODIUM CHLORIDE 1,000 ML IV STA (11:08)
[2023-12-21] MEDS: SODIUM CHLORIDE 1,000 ML IV SCH (11:27)
[2023-12-21] MEDS: DEXTROSE 5%-NORMAL SALINE 1,000 ML IV SCH (11:30)
[2023-12-21 13:32] LABS: URINE AMPHETAMINES NEGATIVE (NEGATIVE); URINE BARBITURATES NEGATIVE (NEGATIVE)
[2023-12-21 13:33] LABS: COCAINE, UR NEGATIVE (NEGATIVE); METHADONE, UR NEGATIVE (NEGATIVE); OPIATES, URI NEGATIVE (NEGATIVE); URINE BENZODIAZEPINES NEGATIVE (NEGATIVE)
[2023-12-21 13:34] LABS: PHENCYCLIDINE,URINE NEGATIVE (NEGATIVE)
[2023-12-21 14:02] LABS: URINE COLOR RED
[2023-12-21 14:03] LABS: URINE BILIRUBIN MODERATE (NEGATIVE); URINE GLUCOSE (UA) NEGATIVE (NEGATIVE); URINE KETONE NEGATIVE (NEGATIVE); URINE UROBILINOGEN 0.2 mg/dL (0.2-1.0)
[2023-12-21] MEDS: PIPERACILLIN/TAZOB 3.375 GM 3.375 GM in DEXTROSE 5%-WATER - 50 ML IVPB SCH (18:19)
[2023-12-21] MEDS ORDERED: PIPERACILLIN/TAZOB 3.375 GM 3.375 GM/50 ML BAG IVPB ONE ×2 (18:19→23:30)
[2023-12-22] MEDS: HEPARIN NA (PORCINE) 5,000 UNITS/ML 1ML VIAL SQ SCH (09:18)
[2023-12-22] MEDS: OXYBUTYNIN CHLORIDE 5 MG TABLET PO SCH (09:40)
[2023-12-22] MEDS: FINASTERIDE 5 MG TABLET (FP) PO SCH (09:41)
[2023-12-22] MEDS: POLYETHYLENE GLYCOL (HEALTHYLAX) 3350 17 GM PACKET PO SCH (09:41)
[2023-12-22] MEDS: DEXTROSE 5%-0.45% SALINE 1,000 ML IV SCH (10:29)
[2023-12-22] MEDS: METOPROLOL TARTRATE 5 MG/5 ML VIAL IVPUSH SCH (10:30)
[2023-12-22] MEDS: hydrALAZINE HCL 20 MG/ML VIAL IVPUSH ONE (17:56)
[2023-12-23 14:35] VITALS: RESP 16
[2023-12-23 18:10] VITALS: BP 166/111; PULSE 62
[2023-12-23 19:31] VITALS: TEMP 97.2
== END 2023-12-23 21:41 | disposition home or self-care (01) | DRG 948 ==
LOC: JER 05:09 → JERBED 11:00 → J4S 12-22 01:42
PROVIDERS: ADMIT Internal Medicine; ATTEND Internal Medicine
DX: R68.0 Hypothermia, not associated with low environmental temperature (principal); F03.90 Unspecified dementia, unspecified severity, without behavioral disturbance, psychotic disturbance, mood disturbance, and anxiety; I10 Essential (primary) hypertension; G20.A1 Parkinson's disease without dyskinesia, without mention of fluctuations; E78.5 Hyperlipidemia, unspecified; R29.6 Repeated falls; Z99.3 Dependence on wheelchair; R53.83 Other fatigue; R53.1 Weakness; R00.1 Bradycardia, unspecified
CPT/HCPCS: 0241U-QW; 36415; 70450-TC; 71045-TC-FY; 80053; 80307; 81003; 82140; 82550; 82553; 82803; 82962; 83605; 84436; 84443; 84484; 85025; 85610; 85730; 86850; 86900; 86901; 87086; 93005; 93010; 99291; J1644

== ENCOUNTER 2024-07-17 23:14 | Inpatient (IN) | payer OTHER ==
[2024-07-18 00:18] LABS: ABSOLUTE IMMATURE GRANULOCYTES 0.02 x10^3/uL (0.0-0.031); BASOPHILS # 0.03 x10^3/uL (0.01-0.08); EOSINOPHIL % 2.2 % (0.8-7.0); EOSINOPHILS # 0.16 x10^3/uL (0.04-0.54); HEMATOCRIT 44.5 % (40.1-51.0); HEMOGLOBIN 14.6 g/dL (13.7-17.5); MCHC 32.8 g/dl (32.3-36.5); MEAN CELL VOLUME 87.8 fl (79.0-92.2); MEAN PLT VOLUME 9.8 fl (9.4-12.4); MONOCYTE % 8.3 % (5.3-12.2); PLATELET COUNT 271 x10^3/uL (163-337); RDW 11.8 % (12.2-16.6)
[2024-07-18 00:23] LABS: EPI CELLS 2 /uL (0-25.1); HYALINE CASTS 0 /uL (0-3.1); URINE APPEARANCE CLOUDY; URINE BACTERIA 6652 /uL (0-1359); URINE BILIRUBIN NEGATIVE (NEGATIVE); URINE COLOR YELLOW; URINE GLUCOSE (UA) NEGATIVE (NEGATIVE); URINE KETONE NEGATIVE (NEGATIVE); URINE LEUK ESTERASE 3+ (NEGATIVE); URINE NITRITE POSITIVE (NEGATIVE); URINE PROTEIN TRACE (NEGATIVE); URINE RBC 40 /uL (0-23.9); URINE UROBILINOGEN 0.2 mg/dL (0.2-1.0); URINE WBC 1253 /uL (0-25.8)
[2024-07-18 00:26] LABS: INR 1.14 (0.83-1.09); PROTHROMBIN TIME (PATIENT) 12.4 SEC (9.7-13.0)
[2024-07-18 00:29] LABS: ACTIVATED PTT 30.4 SECONDS (25.2-36.5)
[2024-07-18 00:48] LABS: CALCIUM 9.2 mg/dL (8.5-10.1)
[2024-07-18 00:49] LABS: ALBUMIN 3.4 g/dl (3.4-5.0); BLOOD UREA NITROGEN 16.3 mg/dL (7-18)
[2024-07-18 00:52] LABS: CREATININE 1.1 mg/dL (0.55-1.3)
[2024-07-18] MEDS ORDERED: PIPERACILLIN/TAZOB 3.375 GM 3.375 GM/50 ML BAG IVPB ONE ×4 (00:52→21:03)
[2024-07-18 00:54] LABS: BILIRUBIN,TOTAL 0.3 mg/dL (0.2-1)
[2024-07-18] MEDS: PIPERACILLIN/TAZOB 3.375 GM 3.375 GM in DEXTROSE 5%-WATER - 50 ML IVPB ONE (00:56)
[2024-07-18] MEDS ORDERED: ACETAMINOPHEN 325 MG TABLET (FP) PO PRN (02:44)
[2024-07-18] MEDS ORDERED: DOCUSATE SODIUM 100 MG CAPSULE (FP) PO PRN (02:44)
[2024-07-18] MEDS ORDERED: ACETAMINOPHEN INJECTION 100 ML ONE (03:15)
[2024-07-18] MEDS: ACETAMINOPHEN 1000 MG/100 ML BAG IVPB ONE (03:17)
[2024-07-18] MEDS: INSULIN ASPART SLIDING SCALE (NOVOLOG) 1 VIAL SQ SCH (08:53)
[2024-07-18] MEDS: PIPERACILLIN/TAZOB 3.375 GM 3.375 GM in DEXTROSE 5%-WATER - 50 ML IVPB SCH ×2 (10:00→21:03)
[2024-07-18] MEDS ORDERED: ENOXAPARIN NA (PORCINE) 40 MG/0.4 ML DISP.SYRIN SQ ONE (10:54)
[2024-07-18] MEDS: ENOXAPARIN NA (PORCINE) 40 MG/0.4 ML DISP.SYRIN SQ SCH (11:02)
[2024-07-19] MEDS: PIPERACILLIN/TAZOB 3.375 GM 3.375 GM in DEXTROSE 5%-WATER - 50 ML IVPB SCH (01:34)
[2024-07-19 08:45] LABS: ABSOLUTE IMMATURE GRANULOCYTES 0.01 x10^3/uL (0.0-0.031); BASOPHILS # 0.04 x10^3/uL (0.01-0.08); EOSINOPHIL % 3.2 % (0.8-7.0); EOSINOPHILS # 0.21 x10^3/uL (0.04-0.54); HEMATOCRIT 45.5 % (40.1-51.0); MEAN PLT VOLUME 10.8 fl (9.4-12.4); MONOCYTE # 0.52 x10^3/uL (0.30-0.82); MONOCYTE % 7.9 % (5.3-12.2); PLATELET COUNT 275 x10^3/uL (163-337); RDW 11.8 % (12.2-16.6)
[2024-07-19 09:34] LABS: BLOOD UREA NITROGEN 13.7 mg/dL (7-18); CALCIUM 9.3 mg/dL (8.5-10.1); MAGNESIUM 2.3 mg/dL (1.8-2.4)
[2024-07-19 09:37] LABS: CREATININE 1.1 mg/dL (0.55-1.3)
[2024-07-19] MEDS: POLYETHYLENE GLYCOL (HEALTHYLAX) 3350 17 GM PACKET PO SCH (13:52)
[2024-07-19 14:25] VITALS: BMI 24.5
[2024-07-20] MEDS: CEFTRIAXONE 1 G/50 ML PREMIX 50 ML IVPB SCH (10:13)
[2024-07-20] MEDS ORDERED: PIPERACILLIN/TAZOB 3.375 GM 3.375 GM in DEXTROSE 5%-WATER - 50 ML IVPB SCH (14:00)
[2024-07-20] MEDS: PIPERACILLIN/TAZOB 3.375 GM 3.375 GM in DEXTROSE 5%-WATER - 50 ML IVPB SCH (17:49)
[2024-07-21] MEDS: ACETAMINOPHEN 1000 MG/100 ML BAG IVPB ONE (17:56)
[2024-07-21 19:11] VITALS: BP 157/78; PULSE 65; RESP 20; TEMP 98
== END 2024-07-21 19:20 | disposition home or self-care (01) | DRG 690 ==
LOC: JER 23:14 → JERBED 07-18 02:12 → J7W 07-19 00:14
PROVIDERS: ADMIT Internal Medicine; ATTEND Internal Medicine
DX: N39.0 Urinary tract infection, site not specified (principal); I10 Essential (primary) hypertension; E78.5 Hyperlipidemia, unspecified; G20.A1 Parkinson's disease without dyskinesia, without mention of fluctuations; F02.80 Dementia in other diseases classified elsewhere, unspecified severity, without behavioral disturbance, psychotic disturbance, mood disturbance, and anxiety; N40.0 Benign prostatic hyperplasia without lower urinary tract symptoms; L89.152 Pressure ulcer of sacral region, stage 2
CPT/HCPCS: 0241U-QW; 36415; 71045-TC-FY; 71275-TC; 74174-TC; 80048; 80053; 81003; 82962; 83735; 84100; 84484; 85025; 85610; 85730; 86140; 86850; 86900; 86901; 87086; 87186; 93005; 93010; 99285-25; J0131

== ENCOUNTER 2024-09-10 22:47 | Emergency (ER) | payer OTHER ==
[2024-09-10 23:12] VITALS: BMI 26.6
[2024-09-11] MEDS ORDERED: HALOPERIDOL LACTATE 5 MG/ML ONE (00:35)
[2024-09-11] MEDS: HALOPERIDOL LACTATE 5 MG/ML IM ONE (00:38)
[2024-09-11 01:36] LABS: ABSOLUTE IMMATURE GRANULOCYTES 0.02 x10^3/uL (0.0-0.031); BASOPHILS # 0.03 x10^3/uL (0.01-0.08); EOSINOPHIL % 2.3 % (0.8-7.0); EOSINOPHILS # 0.18 x10^3/uL (0.04-0.54); MCHC 32.3 g/dl (32.3-36.5); MEAN CELL VOLUME 90.0 fl (79.0-92.2); MEAN PLT VOLUME 10.0 fl (9.4-12.4); MONOCYTE # 0.62 x10^3/uL (0.30-0.82); MONOCYTE % 7.9 % (5.3-12.2); RDW 12.8 % (12.2-16.6)
[2024-09-11 02:04] LABS: INR 1.06 (0.83-1.09); PROTHROMBIN TIME (PATIENT) 11.7 SEC (9.7-13.0)
[2024-09-11 02:07] LABS: ACTIVATED PTT 30.8 SECONDS (25.2-36.5)
[2024-09-11 02:36] LABS: CO2 30.0 mmol/L (21-32); GLUCOSE,RANDOM 95.0 mg/dL (74-106)
[2024-09-11 02:39] LABS: CREATININE 1.1 mg/dL (0.55-1.3); SGOT/AST 22.0 U/L (15-37); SGPT/ALT 30.0 U/L (13-61)
[2024-09-11 02:40] LABS: TOT PROT 7.7 g/dl (6.4-8.2)
[2024-09-11 02:41] LABS: ALK PHOS 90.0 U/L (45-117)
[2024-09-11 04:04] LABS: HIV INTERPRETATION NEGATIVE (NEGATIVE)
[2024-09-11] MEDS: SODIUM PHOSPHATE/NA BIPHOS 133 ML ENEMA PR ONE (05:11)
[2024-09-11 05:32] LABS: HCV DIAGNOSTIC IN-HOUSE W/RFLX NON-REACTIVE (NONREACTIVE)
[2024-09-11 08:14] VITALS: BP 142/85; PULSE 66; RESP 20; TEMP 97.9
== END 2024-09-11 08:10 | disposition home or self-care (01) ==
LOC: JER 22:47
PROC: 3E023GC Introduction of Other Therapeutic Substance into Muscle, Percutaneous Approach (ICD-10-PCS; principal; 2024-09-11)
DX: K56.41 Fecal impaction (principal); R10.84 Generalized abdominal pain; R14.0 Abdominal distension (gaseous); R25.1 Tremor, unspecified; R45.6 Violent behavior; R94.31 Abnormal electrocardiogram [ECG] [EKG]
CPT/HCPCS: 36415; 74177-TC; 80053; 83690; 84484; 85025; 85610; 85730; 86803; 86850; 86900; 86901; 87389; 93005; 93010; 96372; 99285-25

== ENCOUNTER 2024-12-11 06:29 | Observation (INO) | payer OTHER ==
[2024-12-11] MEDS ORDERED: ACETAMINOPHEN INJECTION 100 ML ONE (07:28)
[2024-12-11 08:11] LABS: ABSOLUTE IMMATURE GRANULOCYTES 0.02 x10^3/uL (0.0-0.031); MEAN CELL VOLUME 89.6 fl (79.0-92.2); RDW 12.0 % (12.2-16.6)
[2024-12-11 08:13] LABS: BASOPHILS # 0.04 x10^3/uL (0.01-0.08); EOSINOPHIL % 5.8 % (0.8-7.0); EOSINOPHILS # 0.42 x10^3/uL (0.04-0.54); IMMATURE PLATELET FRACTION # 10.40 x10^3/uL; MCHC 32.4 g/dl (32.3-36.5); MONOCYTE # 0.51 x10^3/uL (0.30-0.82); MONOCYTE % 7.1 % (5.3-12.2)
[2024-12-11 08:24] LABS: GLUCOSE,RANDOM 86 mg/dL (74-106); TOT PROT 8.0 g/dl (6.4-8.2)
[2024-12-11 08:25] LABS: CO2 24 mmol/L (21-32)
[2024-12-11 08:27] LABS: ALK PHOS 69 U/L (40-150)
[2024-12-11 08:30] LABS: CREATININE 0.78 mg/dL (0.55-1.3); SGOT/AST 63 U/L (5-34); SGPT/ALT 21 U/L (0-55)
[2024-12-11 08:53] LABS: INR 1.11 (0.83-1.09); PROTHROMBIN TIME (PATIENT) 12.1 SEC (9.7-13.0)
[2024-12-11 08:56] LABS: ACTIVATED PTT 30.9 SECONDS (25.2-36.5)
[2024-12-11] MEDS: ACETAMINOPHEN 1000 MG/100 ML BAG IVPB ONE (09:01)
[2024-12-11 09:06] LABS: EPI CELLS 6 /uL (0-25.1); HYALINE CASTS 0 /uL (0-3.1); URINE APPEARANCE CLEAR; URINE BACTERIA 20 /uL (0-1359); URINE BILIRUBIN NEGATIVE (NEGATIVE); URINE COLOR YELLOW; URINE GLUCOSE (UA) NEGATIVE (NEGATIVE); URINE KETONE NEGATIVE (NEGATIVE); URINE LEUK ESTERASE NEGATIVE (NEGATIVE); URINE NITRITE NEGATIVE (NEGATIVE); URINE PROTEIN NEGATIVE (NEGATIVE); URINE RBC 51 /uL (0-23.9); URINE UROBILINOGEN 0.2 mg/dL (0.2-1.0); URINE WBC 7 /uL (0-25.8)
[2024-12-11 09:07] LABS: GLUCOSE,RANDOM 96.0 mg/dL (74-106)
[2024-12-11 09:09] LABS: CO2 29.0 mmol/L (21-32)
[2024-12-11 09:13] LABS: CREATININE 0.91 mg/dL (0.55-1.3)
[2024-12-11] MEDS ORDERED: HALOPERIDOL LACTATE 5 MG/ML ONE (09:41)
[2024-12-11] MEDS: HALOPERIDOL LACTATE 5 MG/ML IM ONE (09:47)
[2024-12-11] MEDS: LACTATED RINGERS SOLUTION 1000 ML INFUS.BAG IV ONE (10:00)
[2024-12-11 10:33] LABS: URINE CRYSTALS PRESENT /hpf
[2024-12-11] MEDS ORDERED: MIDAZOLAM HCL 2 MG/2 ML SINGLE DOSE VIAL ONE (12:10)
[2024-12-11] MEDS: LORazepam 2 MG/ML SDV VIAL IVPUSH ONE (12:17)
[2024-12-11] MEDS: MIDAZOLAM HCL 2 MG/2 ML SINGLE DOSE VIAL IVPUSH ONE (12:17)
[2024-12-11] MEDS: MINERAL OIL ENEMA 133 ML ENEMA RC ONE (17:43)
[2024-12-11 23:41] LABS: HIV INTERPRETATION NEGATIVE (NEGATIVE)
[2024-12-11 23:42] LABS: HCV DIAGNOSTIC IN-HOUSE W/RFLX NON-REACTIVE (NONREACTIVE)
[2024-12-12] MEDS ORDERED: TETRACAINE 0.5% OPHTH SOLN 2 ML BOTTLE ONE (01:35)
[2024-12-12 03:09] VITALS: RESP 18
[2024-12-12 09:28] VITALS: BMI 24.0
[2024-12-12 09:33] LABS: ABSOLUTE IMMATURE GRANULOCYTES 0.01 x10^3/uL (0.0-0.031); BASOPHILS # 0.04 x10^3/uL (0.01-0.08); EOSINOPHIL % 6.5 % (0.8-7.0); EOSINOPHILS # 0.37 x10^3/uL (0.04-0.54); MCHC 32.7 g/dl (32.3-36.5); MEAN CELL VOLUME 88.2 fl (79.0-92.2); MEAN PLT VOLUME 10.5 fl (9.4-12.4); MONOCYTE # 0.42 x10^3/uL (0.30-0.82); MONOCYTE % 7.3 % (5.3-12.2); RDW 12.0 % (12.2-16.6)
[2024-12-12 09:54] LABS: GLUCOSE,RANDOM 86.0 mg/dL (74-106)
[2024-12-12 09:56] LABS: CO2 26.0 mmol/L (21-32)
[2024-12-12 10:00] LABS: CREATININE 0.87 mg/dL (0.55-1.3)
[2024-12-12] MEDS: POLYETHYLENE GLYCOL (HEALTHYLAX) 3350 17 GM PACKET PO SCH ×2 (10:31→21:22)
[2024-12-12] MEDS: MINERAL OIL ENEMA 133 ML ENEMA RC ONE (14:42)
[2024-12-12] MEDS: CARBIDOPA/LEVODOPA 25/250 TABLET (FP) PO SCH (14:42)
[2024-12-12] MEDS: MAGNESIUM HYDROX 2400MG/30ML ORAL SUSPENSION 30 ML CUP PO ONE (16:58)
[2024-12-12] MEDS: SENNOSIDES 8.8 MG/5 ML SYRUP PO SCH (21:22)
[2024-12-12] MEDS: MIRTAZAPINE 15 MG TABLET (FP) PO SCH (21:22)
[2024-12-12] MEDS ORDERED: SENNOSIDES 8.6MG TABLET (FP) PO SCH (22:00)
[2024-12-13] MEDS ORDERED: BISACODYL 10 MG SUPP.RECT PR PRN (07:02)
[2024-12-13] MEDS: SENNOSIDES 8.8 MG/5 ML SYRUP PO SCH (21:08)
[2024-12-14 15:38] VITALS: BP 122/81; PULSE 75; TEMP 98.2
== END 2024-12-14 17:58 | disposition home or self-care (01) ==
LOC: JER 06:29 → SUATTDRO 06:29 → JERBED 19:09 → J5S 23:54
PROVIDERS: ADMIT Internal Medicine
PROC: 3E033NZ Introduction of Analgesics, Hypnotics, Sedatives into Peripheral Vein, Percutaneous Approach (ICD-10-PCS; principal; 2024-12-11)
PROC: 3E023GC Introduction of Other Therapeutic Substance into Muscle, Percutaneous Approach (ICD-10-PCS; 2024-12-11)
PROC: 3E0337Z Introduction of Electrolytic and Water Balance Substance into Peripheral Vein, Percutaneous Approach (ICD-10-PCS; 2024-12-11)
PROC: 3E033NZ Introduction of Analgesics, Hypnotics, Sedatives into Peripheral Vein, Percutaneous Approach (ICD-10-PCS; 2024-12-11)
DX: K59.09 Other constipation (principal); R10.32 Left lower quadrant pain; G20.A1 Parkinson's disease without dyskinesia, without mention of fluctuations; N40.0 Benign prostatic hyperplasia without lower urinary tract symptoms; F03.90 Unspecified dementia, unspecified severity, without behavioral disturbance, psychotic disturbance, mood disturbance, and anxiety; R53.2 Functional quadriplegia; Z86.73 Personal history of transient ischemic attack (TIA), and cerebral infarction without residual deficits; E78.5 Hyperlipidemia, unspecified; Z60.9 Problem related to social environment, unspecified
CPT/HCPCS: 36415; 71045-TC-FY; 74176-TC; 80048; 80053; 81003; 83605; 83690; 83735; 84484; 85025; 85610; 85730; 86803; 86850; 86900; 86901; 87086; 87389; 93005; 93010; 96372; 96374; 96375; 99285-25; G0378